=== PATIENT | male | born 1945 | race Caucasian/White ===

== ENCOUNTER 2017-11-06 17:58 | Inpatient (IN) ==
--- NOTE | 2017-11-06 18:24 | Emergency Department Note ---
Disposition Clinical Impression: Non-STEMI (non-ST elevated myocardial infarction), COPD (chronic obstructive pulmonary disease), Congestive heart failure, Anemia, Renal insufficiency, Frail elderly, Lung cancer Disposition: Admitted As Inpatient [facility] Provider[facility] - Forms: ED Satisfaction Letter General Adult HPI - General Chief complaint: ED Shortness of Breath/Dyspnea Stated complaint: SIRISHA Time Seen by Provider: 11/06/17 18:03 Source: patient, EMS Limitations: no limitations - History of Present Illness HPI Narrative: 72-year-old male reports emergency department complaining of cough and shortness of breath. He has a history of COPD and CHF as well as a cardiac pacemaker placed, he describes a history of 3 cardiac stents. The patient was at the [place], there was concern because he had a slightly elevated troponin, so the patient was transferred to the ED for evaluation. The patient reports he has a history of lung cancer and is pending radiation therapy. He describes intermittent hemoptysis from his lung masses. He has not had marked hemoptysis , occasionally small amounts,. No active hemoptysis reported. He has had no chest pain. He does not usually require oxygen at home. The patient has no history of DVT or PE, he states he has had some leg swelling which is chronic and does not get more short of breath when laying flat. The patient lives alone at home. He denies any chest pain there is no history of syncope abdominal pain vomiting or diarrhea. No difficulty moving the arms or legs independently. The patient states that he has had increasing shortness of breath and has dyspnea on exertion. There is no history of fever or sore throat. The patient denies anticoagulant therapy. There is no history of rectal bleeding. No headache or confusion. No problems moving the arms or legs independently. No facial drooping or confusion. Pain Scale: 0 - Related Data Home Medications Medication Instructions Recorded Confirmed Albuterol Sulfate [Albuterol 2 puff IH Q6HR PRN 09/28/15 08/21/17 Inhaler] Amiodarone [Cordarone] 200 mg PO QAM 09/28/15 08/21/17 Ascorbic Acid [Vitamin C] 500 mg PO DAILY 09/28/15 08/21/17 Aspirin Enteric Coated [Aspirin EC] 81 mg PO DAILY 09/28/15 08/21/17 Cholecalciferol (Vitamin D3) 800 unit PO DAILY 09/28/15 08/21/17 [Vitamin D3] Cyanocobalamin (B-12) 1,000 mcg PO BID 09/28/15 08/21/17 Furosemide [Lasix] 20 mg PO DAILY 09/28/15 08/21/17 GlipiZIDE [Glucotrol] 20 mg PO BID 09/28/15 08/21/17 Mometasone Furoate [Asmanex] 2 puff IH BID 09/28/15 08/21/17 Nitroglycerin [Nitrostat] 0.4 mg SL AD PRN 09/28/15 08/21/17 Tiotropium [Spiriva] 18 mcg IH DAILY 09/28/15 08/21/17 Acetaminophen [Tylenol] 650 mg PO Q6HR PRN 08/01/17 08/21/17 Cyclobenzaprine [Flexeril] 10 mg PO BID PRN 08/01/17 08/21/17 Docusate Sodium [Dok] 100 mg PO BID PRN 08/01/17 08/21/17 Levothyroxine [Synthroid] 125 mcg PO 0630 08/01/17 08/21/17 Simvastatin [Zocor] 40 mg PO HS 08/01/17 08/21/17 Tamsulosin [Flomax] 0.4 mg PO DAILY 08/01/17 08/21/17 Tramadol HCl [Ultram] 50 mg PO Q6H PRN 08/01/17 08/21/17 guaiFENesin [Child Mucinex Chest 10 ml PO Q4H PRN 08/01/17 08/21/17 Congestion] Bisacodyl [Dulcolax] 10 mg RC HS PRN 08/21/17 08/21/17 Calcitriol [Rocaltrol] 0.25 mcg PO QMWF 08/21/17 08/21/17 Mineral Oil/Petrolatum,White 1 appl BOTH EYES HS 08/21/17 08/21/17 [Lubricant Eye Ointment] Polyethylene Glycol 3350 17 gm PO BID 08/21/17 08/21/17 Allergies Allergy/AdvReac Type Severity Reaction Status Date / Time PLASTIC TAPE AdvReac Redness of Uncoded 08/21/17 11:26 Skin All systems ED: reviewed and negative except as stated. Past Medical History - Past Medical History Medical history: Reports: atrial fibrillation, cancer, CHF, COPD, diabetes, GERD , hyperlipidemia, hypertension, peripheral artery disease, renal disease, thyroid disease Surgical history: Reports: pacemaker/AICD Psychiatric history: Reports: no psych history - Social History Smoking Status: Former smoker Smokeless Tobacco Status: No Alcohol use: Reports: none Drug use: Reports: none Physical Exam - General Limitations: no limitations General appearance: alert, in no apparent distress - Head Head exam: atraumatic, normocephalic, normal inspection - Eye Eye exam: Present: normal appearance, PERRL, EOMI. Absent: scleral icterus, conjunctival injection, mydriasis, periorbital swelling - ENT ENT exam: normal exam, normal oropharynx, mucous membranes moist - Neck Neck exam: Present: normal inspection, full ROM, trachea midline - Chest Chest inspection: Present: symmetric chest wall rise. Absent: tenderness - Respiratory Respiratory exam: Present: prolonged expiratory phase. Absent: respiratory distress, wheezes, accessory muscle use - Cardiovascular Cardiovascular exam: Present: regular rate, normal rhythm, normal heart sounds - Abdominal Exam Abdominal exam: Present: soft, Non-Tender, normal bowel sounds. Absent: tenderness, distention, guarding, rebound, rigidity, Toney's sign, Rovsing's sign, tenderness at McBurney's Point - Extremities Exam Extremities exam: Present: normal inspection, full ROM, normal capillary refill. Absent: tenderness, pedal edema, joint swelling, calf tenderness - Expanded Lower Extremity Exam Neurovascular/Tendon exam: Present: normal capillary refill. Absent: motor deficit, sensory deficit, tendon deficit, extremity cold to touch, pallor - Back Exam Back exam: Present: normal inspection, full ROM. Absent: tenderness, CVA tenderness (R), CVA tenderness (L), vertebral tenderness - Neurological Exam Neurological exam: Present: alert, oriented X3, CN II-XII intact. Absent: motor sensory deficit - Psychiatric Psychiatric exam: Present: normal affect, normal mood - Skin Skin exam: Present: warm, dry, intact, normal color. Absent: rash, cyanosis, diaphoresis, erythema, pallor, mottled Course Vital Signs Temperature 98.5 F 11/06/17 18:02 Pulse Rate 114 11/06/17 18:02 Respiratory Rate 28 11/06/17 18:02 Blood Pressure 123/71 11/06/17 18:02 O2 Sat by Pulse Oximetry 93 11/06/17 18:02 Temperature 98.5 F 11/06/17 18:02 Pulse Rate 77 11/06/17 19:07 Respiratory Rate 28 11/06/17 19:07 Blood Pressure 109/69 11/06/17 19:07 O2 Sat by Pulse Oximetry 92 11/06/17 19:07 Oxygen Delivery Oxygen Delivery Nasal Cannula Medical Decision Making - MDM Narrative Medical decision making narrative: The [facility]27 [facility]. The patient described no chest pain. EKG did not show ST elevations. Chest x-ray shows what appear to be masses. No overt pneumonia reported. The patient was maintained on oxygen emergency department. I reviewed the case with the hospitalist on-call who was recommended aspirin and heparin and a cardiology consult. I spoke with the cook chili on-call Dr. Meza who concurs with the plan and at primary medical admission with secondary cardiology consult. The patient is agreeable to admission. Aspirin and heparin were ordered. He is currently stable with no evidence of hemoptysis. He is elderly with a history of COPD CHF lung cancer and multiple coronary stents, his troponin is significantly elevated and likely presents a non-STEMI. I do not believe the patient has a DVT or PE based on clinical examination however this is in the differential. A stable chest pain-free pending admission. - Lab Data Lab results reviewed: Yes I reviewed the patient's lab results. Result diagrams: 11/06/17 18:17 11/06/17 18:17 Lab Results 11/06/17 11/06/17 11/06/17 Range/Units 18:17 18:17 18:17 WBC 8.7 (4.3-11.1) K/mcL RBC 3.78 L (4.19-5.50) M/mcL Hgb 10.7 L (12.9-16.9) g/dL Hct 35.6 L (37.5-50.1) % MCV 94.2 (83.0-100.0) fL MCH 28.3 (28.0-33.3) pg MCHC 30.1 L (31.6-35.5) g/dL RDW 18.8 H (11.5-14.5) % Plt Count 188 (140-400) K/mcL MPV 8.9 L (9.4-12.4) fL Immature Gran % 0.5 (0-4) % Seg Neutrophils % 67.9 % Lymphocytes % 23.2 % Monocytes % 7.8 % Eosinophils % 0.3 % Basophils % 0.3 % Neutrophils # 5.9 (1.6-8.9) K/mcL Lymphocytes # 2.0 (0.6-4.6) K/mcL Monocytes # 0.7 (0.0-1.3) K/mcL Eosinophils # 0.0 (0.0-0.6) K/mcL Basophils # 0.0 (0.0-0.2) K/mcL PT 13.9 H (9.4-12.1) Seconds INR 1.3 APTT 29.5 (26.0-36.0) Seconds Sodium 140 (136-145) mEq/L Potassium 4.2 (3.5-4.5) mEq/L Chloride 104 (98-109) mEq/L Carbon Dioxide 28 (19-29) mEq/L BUN 25 (8-26) mg/dL Creatinine 1.67 H (0.72-1.25) mg/dL Est GFR ( Amer) 49 L (> 60) Est GFR (Non-Af Amer) 40 L (> 60) BUN/Creatinine Ratio 15 (6-26) Glucose 155 H (70-99) mg/dL Calculated Osmolality 298 (280-300) Lactic Acid (0.5-2.2) mmol/L Calcium 8.1 L (8.6-10.8) mg/dL Total Bilirubin 0.9 (0.2-1.2) mg/dL Direct Bilirubin 0.5 (0.0-0.5) mg/dL Indirect Bilirubin 0.4 (0.0-1.2) mg/dL AST 8 (5-34) Units/L ALT 8 (0-55) Units/L Alkaline Phosphatase 69 (38-126) Units/L Troponin I (0-0.03) ng/mL C-Reactive Protein (Less than 5) mg/L B-Natriuretic Peptide (0-100) pg/mL Serum Total Protein 6.2 (6.0-8.3) g/dL Albumin 2.5 L (3.5-5.0) g/dL Globulin 3.7 H (2.4-3.5) g/dL Albumin/Globulin Ratio 0.7 L (1.1-2.2) 11/06/17 11/06/17 11/06/17 Range/Units 18:17 18:17 18:17 WBC (4.3-11.1) K/mcL RBC (4.19-5.50) M/mcL Hgb (12.9-16.9) g/dL Hct (37.5-50.1) % MCV (83.0-100.0) fL MCH (28.0-33.3) pg MCHC (31.6-35.5) g/dL RDW (11.5-14.5) % Plt Count (140-400) K/mcL MPV (9.4-12.4) fL Immature Gran % (0-4) % Seg Neutrophils % % Lymphocytes % % Monocytes % % Eosinophils % % Basophils % % Neutrophils # (1.6-8.9) K/mcL Lymphocytes # (0.6-4.6) K/mcL Monocytes # (0.0-1.3) K/mcL Eosinophils # (0.0-0.6) K/mcL Basophils # (0.0-0.2) K/mcL PT (9.4-12.1) Seconds INR APTT (26.0-36.0) Seconds Sodium (136-145) mEq/L Potassium (3.5-4.5) mEq/L Chloride (98-109) mEq/L Carbon Dioxide (19-29) mEq/L BUN (8-26) mg/dL Creatinine (0.72-1.25) mg/dL Est GFR ( Amer) (> 60) Est GFR (Non-Af Amer) (> 60) BUN/Creatinine Ratio (6-26) Glucose (70-99) mg/dL Calculated Osmolality (280-300) Lactic Acid 1.7 (0.5-2.2) mmol/L Calcium (8.6-10.8) mg/dL Total Bilirubin (0.2-1.2) mg/dL Direct Bilirubin (0.0-0.5) mg/dL Indirect Bilirubin (0.0-1.2) mg/dL AST (5-34) Units/L ALT (0-55) Units/L Alkaline Phosphatase (38-126) Units/L Troponin I 0.27 H* (0-0.03) ng/mL C-Reactive Protein (Less than 5) mg/L B-Natriuretic Peptide 780 H (0-100) pg/mL Serum Total Protein (6.0-8.3) g/dL Albumin (3.5-5.0) g/dL Globulin (2.4-3.5) g/dL Albumin/Globulin Ratio (1.1-2.2) 12//17 Range/Units 18:17 WBC (4.3-11.1) K/mcL RBC (4.19-5.50) M/mcL Hgb (12.9-16.9) g/dL Hct (37.5-50.1) % MCV (83.0-100.0) fL MCH (28.0-33.3) pg MCHC (31.6-35.5) g/dL RDW (11.5-14.5) % Plt Count (140-400) K/mcL MPV (9.4-12.4) fL Immature Gran % (0-4) % Seg Neutrophils % % Lymphocytes % % Monocytes % % Eosinophils % % Basophils % % Neutrophils # (1.6-8.9) K/mcL Lymphocytes # (0.6-4.6) K/mcL Monocytes # (0.0-1.3) K/mcL Eosinophils # (0.0-0.6) K/mcL Basophils # (0.0-0.2) K/mcL PT (9.4-12.1) Seconds INR APTT (26.0-36.0) Seconds Sodium (136-145) mEq/L Potassium (3.5-4.5) mEq/L Chloride (98-109) mEq/L Carbon Dioxide (19-29) mEq/L BUN (8-26) mg/dL Creatinine (0.72-1.25) mg/dL Est GFR ( Amer) (> 60) Est GFR (Non-Af Amer) (> 60) BUN/Creatinine Ratio (6-26) Glucose (70-99) mg/dL Calculated Osmolality (280-300) Lactic Acid (0.5-2.2) mmol/L Calcium (8.6-10.8) mg/dL Total Bilirubin (0.2-1.2) mg/dL Direct Bilirubin (0.0-0.5) mg/dL Indirect Bilirubin (0.0-1.2) mg/dL AST (5-34) Units/L ALT (0-55) Units/L Alkaline Phosphatase (38-126) Units/L Troponin I (0-0.03) ng/mL C-Reactive Protein 94 H (Less than 5) mg/L B-Natriuretic Peptide (0-100) pg/mL Serum Total Protein (6.0-8.3) g/dL Albumin (3.5-5.0) g/dL Globulin (2.4-3.5) g/dL Albumin/Globulin Ratio (1.1-2.2) - Radiology Data Radiology results reviewed: Yes I reviewed the patient's radiology results. Critical Care Time Critical Care Time: Yes Total Critical Care Time: 33 Attestation: 10 minutes initial evaluation 10 minutes documenting the medical record and interpreting clinical data 5 minutes reevaluation 8 minutes discussing with the hospitalist, cook chili, and arranging for admission.
[2017-11-06 18:39] LABS: Basophils % 0.3 %; Eosinophils % 0.3 %; Hematocrit 35.6 % (37.5-50.1); Hemoglobin 10.7 g/dL (12.9-16.9); Immature Granulocytes % 0.5 % (0-4); Lymphocytes % 23.2 %; Mean Corpuscular HGB Conc 30.1 g/dL (31.6-35.5); Mean Corpuscular Hemoglobin 28.3 pg (28.0-33.3); Mean Corpuscular Volume 94.2 fL (83.0-100.0); Mean Platelet Volume 8.9 fL (9.4-12.4); Monocytes # 0.7 K/mcL (0.0-1.3); Monocytes % 7.8 %; Neutrophils # 5.9 K/mcL (1.6-8.9); Platelet Count 188 K/mcL (140-400); Red Blood Count 3.78 M/mcL (4.19-5.50); Red Cell Distribution Width 18.8 % (11.5-14.5); Segmented Neutrophils % 67.9 %
[2017-11-06 18:45] LABS: INR 1.3; Prothrombin Time 13.9 Seconds (9.4-12.1)
[2017-11-06 18:48] LABS: Activated Partial Thrombo Time 29.5 Seconds (26.0-36.0)
[2017-11-06 18:57] LABS: Albumin 2.5 g/dL (3.5-5.0); Bilirubin,Direct 0.5 mg/dL (0.0-0.5); Bilirubin,Indirect 0.4 mg/dL (0.0-1.2); Bilirubin,Total 0.9 mg/dL (0.2-1.2); Calcium 8.1 mg/dL (8.6-10.8); Potassium 4.2 mEq/L (3.5-4.5); Total Protein 6.2 g/dL (6.0-8.3)
[2017-11-06 18:58] LABS: Albumin/Globulin Ratio 0.7 (1.1-2.2); Globulin 3.7 g/dL (2.4-3.5)
[2017-11-06] MEDS ORDERED: Aspirin 325 MG TABLET PO ONE (19:44)
[2017-11-06] MEDS ORDERED: *HR* Heparin 5,000 UNIT/ML VIAL IVP PRN (20:04)
[2017-11-06] MEDS ORDERED: *HR* Heparin 5,000 UNIT/ML VIAL IVP ONE (20:04)
[2017-11-06] MEDS: Heparin 25,000 UNIT/500 ML D5W 25,000 UNIT/500 ML BAG IVC SCH (20:22)
[2017-11-06] MEDS ORDERED: Sennosides/Docusate Sodium TABLET PO PRN (20:41)
[2017-11-06] MEDS ORDERED: Nitroglycerin 0.4 MG TAB.SUBL SL PRN (20:41)
[2017-11-06] MEDS ORDERED: Furosemide 40 MG/4 ML VIAL IVP ONE (20:43)
[2017-11-06] MEDS ORDERED: *HR* Morphine 2 MG/ML SYRINGE IVP PRN (20:45)
[2017-11-06] MEDS ORDERED: Naloxone 0.4 MG/ML INJ IVP PRN (20:45)
[2017-11-06] MEDS ORDERED: Ipratropium/Albuterol Neb 3 ML IH PRN (20:45)
--- NOTE | 2017-11-06 20:50 | Internal Med History&Physical ---
Date of Encounter: 11/06/17 Time of Encounter: 20:49 Assessment and Plan (1) Non-STEMI (non-ST elevated myocardial infarction) Current visit: Yes Status: Acute likely demand from cardio-pulm issues d/w ED who d/w card, heparin gtt for now trend trop (2) Acute bronchitis Current visit: Yes Status: Acute duonebs trial, azithro trial Qualifiers: Bronchitis organism: other organism Qualified Code(s): J20.8 - Acute bronchitis due to other specified organisms (3) Congestive heart failure Current visit: Yes Status: Acute trial of lasix BID for now, I&Os Qualifiers: Congestive heart failure type: combined Congestive heart failure chronicity : acute Qualified Code(s): I50.41 - Acute combined systolic (congestive) and diastolic (congestive) heart failure (4) Lung cancer Current visit: Yes Status: Acute streak hemoptysis to monitor closely pending what appears to be definitive XRT start Qualifiers: Qualified Code(s): C34.00 - Malignant neoplasm of unspecified main bronchus (5) Renal insufficiency Current visit: Yes Status: Acute trend with lasix Internal Medicine - H&P: HPI Chief complaint: SOB History of present illness: Mr. Kim is a 72 year old male who presents from the [facility] for acute on subacute SOB. He has a hx of CAD s/p 3 stents many years ago and also has a cardiac device placement 2011. [facility] of breathing. He could not walk 8-9 steps without feeling SOB. He reports a background of subacute SOB for the last few months but was notably worse today. He uses 2 L prn. Denies CP or CP equivalent. He quit smoking 1994 He was recently dx with lung ca and reported streak hemoptysis prn. He is pending what appears to be definitive XRT -Oct EKG personally reviewed with rate 86, NSR, T-ST flattening XR/XR chest 2V IMPRESSION: 1. Stable pulmonary venous/artery hypertension. 2. Interval resolution of effusions with stable patchy pulmonary opacities which may represent component of interstitial edema. No lobar pneumonia. Past Med Surg Social Fam HX - Past Medical History Medical history: atrial fibrillation, cancer, CHF, COPD, diabetes, GERD, hyperlipidemia, hypertension, peripheral artery disease, renal disease, thyroid disease Psychiatric history: no psych history - Past Surgical History Surgical History: pacemaker/AICD - Social History Smoking Status: Former smoker Smokeless Tobacco Status: No Alcohol use: none Drug use: none - Additional Family History Additional family history: HTN Internal Medicine - H&P: Meds Albuterol Sulfate [Albuterol Inhaler] 2 puff IH Q6HR PRN 09/28/15 [History] Amiodarone [Cordarone] 200 mg PO DAILY 09/28/15 [History] Ascorbic Acid [Vitamin C] 500 mg PO DAILY 09/28/15 [History] Aspirin Enteric Coated [Aspirin EC] 81 mg PO DAILY 09/28/15 [History] Cyanocobalamin (B-12) 1,000 mcg PO BID 09/28/15 [History] Mometasone Furoate [Asmanex] 2 puff IH BID 09/28/15 [History] Nitroglycerin [Nitrostat] 0.4 mg SL Q5M PRN 09/28/15 [History] Tiotropium [Spiriva] 18 mcg IH DAILY 09/28/15 [History] Acetaminophen [Tylenol] 650 mg PO TID PRN 08/01/17 [History] Cyclobenzaprine [Flexeril] 10 mg PO BID PRN 08/01/17 [History] Docusate Sodium [Dok] 100 mg PO BID 08/01/17 [History] Levothyroxine [Synthroid] 125 mcg PO 0630 08/01/17 [History] Tamsulosin [Flomax] 0.4 mg PO QPM 08/01/17 [History] Tramadol HCl [Ultram] 50 mg PO TID PRN 08/01/17 [History] Calcitriol [Rocaltrol] 0.25 mcg PO MOWEFR 08/21/17 [History] Mineral Oil/Petrolatum,White [Lubricant Eye Ointment] 1 appl BOTH EYES HS [History] Albuterol Neb [Proventil Neb] 2.5 mg IH Q4H PRN 11/06/17 [History] Cholecalciferol (D-3) [Vitamin D] 2,000 unit PO DAILY 11/06/17 [History] Furosemide [Lasix] 30 mg PO DAILY 11/06/17 [History] GuaiFENesin/Dextromethorphan [Tussin Dm Syrup] 5 ml PO Q6H PRN 11/06/17 [History ] Insulin ASPART [NovoLOG] 6 unit SQ DAILY 11/06/17 [History] Insulin Glargine,Hum.rec.anlog [Basaglar Kwikpen U-100] 10 unit SQ QAM 11/06/17 [History] Insulin Glargine,Hum.rec.anlog [Basaglar Kwikpen U-100] 15 unit SQ HS 11/06/17 [ History] Mometasone/Formoterol [Dulera 200 Mcg/5 Mcg Inhaler] 2 puff IH BID 11/06/17 [ History] Saline Nasal [place] [[place] Nasal [place]] 2 spray NS 5XD PRN 11/06/17 [History] Sennosides/Docusate Sodium [Senna Plus] 1 each PO BID PRN 11/06/17 [History] Simvastatin [Zocor] 20 mg PO HS 11/06/17 [History] predniSONE [PredniSONE] 10 mg PO DAILY 11/06/17 [History] 3 Allergy/AdvReac Type Severity Reaction Status Date / Time acarbose AdvReac See Verified 11/06/17 20:26 Comments PLASTIC TAPE AdvReac Redness of Uncoded 08/21/17 11:26 Skin All Systems PM: A 10-system review of systems was performed and is negative for pertinent findings except as documented above in the HPI. Review of systems: ROS 14 point review of systems reviewed as best as possible given presentation. Pertinent positive or negative as per HPI or otherwise reviewed as negative - Constitutional Vitals: Temp Pulse Resp BP Pulse Ox 98.5 F 72 24 114/67 91 11/06/17 18:02 11/06/17 20:07 11/06/17 20:07 11/06/17 20:07 11/06/17 20:07 Exam: General - AAO x 3 Psych - Appropriate affect/speech. No agitation Eyes - JIMMY. Eye lids intact. No scleral icterus Heart - Sinus. RRR. S1 and S2 present. No added HS/murmurs appreciated. No elevated JVD appreciated. Lung - Adequate air entry b/l, Bibasal crackles. No wheezes appreciated GI - Soft, non-tender. No hepatosplenomegaly/ascites. BS+ - No CVA/suprapubic tenderness or palpable bladder distension Skin - Intact. No rash/petechiae/ecchymosis. Warm extremities. B/l LE edema Internal Med - H&P Results - Labs CBC & Chem 7: 11/06/17 18:17 11/06/17 18:17
[2017-11-06] MEDS ORDERED: NON-FORMULARY MEDICATION 1 EACH EACH (Mometasone/Formoterol [Dulera 200 Mcg/5 Mcg Inhaler] IH SCH (21:00)
[2017-11-06] MEDS ORDERED: *HR* Dextrose 50 % in Water (Syg) 50 ML SYRINGE IVP PRN (21:08)
[2017-11-06] MEDS ORDERED: Dextrose Gel 15 GM PO PRN ×2 (21:08)
[2017-11-06] MEDS ORDERED: D5% in Water 1,000 ML IVC PRN (21:08)
[2017-11-06] MEDS: Ipratropium/Albuterol Neb 3 ML IH SCH (22:26)
[2017-11-06] MEDS: Budesonide/Formoterol 160/4.5 MDI IH SCH (22:26)
[2017-11-06] MEDS: traMADol 50 MG TABLET PO PRN (22:39)
[2017-11-06] MEDS: Cyanocobalamin (B-12) 1,000 MCG TABLET PO SCH (22:39)
[2017-11-06] MEDS: Insulin DETEMIR 100 UNIT/ML X5UNITS SQ SCH (22:40)
[2017-11-07 04:19] LABS: Basophils % 0.4 %; Eosinophils # 0.1 K/mcL (0.0-0.6); Eosinophils % 1.3 %; Hematocrit 32.4 % (37.5-50.1); Hemoglobin 10.1 g/dL (12.9-16.9); Immature Granulocytes % 0.2 % (0-4); Lymphocytes # 1.8 K/mcL (0.6-4.6); Lymphocytes % 33.3 %; Mean Corpuscular HGB Conc 31.2 g/dL (31.6-35.5); Mean Corpuscular Hemoglobin 29.3 pg (28.0-33.3); Mean Corpuscular Volume 93.9 fL (83.0-100.0); Mean Platelet Volume 8.7 fL (9.4-12.4); Monocytes # 0.5 K/mcL (0.0-1.3); Monocytes % 8.7 %; Neutrophils # 3.1 K/mcL (1.6-8.9); Platelet Count 159 K/mcL (140-400); Red Blood Count 3.45 M/mcL (4.19-5.50); Red Cell Distribution Width 18.9 % (11.5-14.5); Segmented Neutrophils % 56.1 %
[2017-11-07 04:28] LABS: Calcium 8.2 mg/dL (8.6-10.8); Potassium 4.3 mEq/L (3.5-4.5)
[2017-11-07] MEDS: Ipratropium/Albuterol Neb 3 ML IH SCH ×4 (04:46→22:09)
[2017-11-07] MEDS: *HR* Heparin 5,000 UNIT/ML VIAL IVP PRN ×2 (07:52→14:53)
[2017-11-07] MEDS: Ascorbic Acid 500 MG TABLET PO SCH (08:22)
[2017-11-07] MEDS: Cyanocobalamin (B-12) 1,000 MCG TABLET PO SCH ×2 (08:22→20:16)
[2017-11-07] MEDS: Cholecalciferol (D-3) 1,000 UNIT TABLET PO SCH (08:22)
[2017-11-07] MEDS: *HR* Amiodarone 200 MG TABLET PO SCH (08:22)
[2017-11-07] MEDS: Insulin LISPRO 300 UNITS/3 ML VIAL SQ SCH ×3 (08:25→16:24)
[2017-11-07] MEDS: Insulin DETEMIR 100 UNIT/ML X5UNITS SQ SCH ×2 (08:26→20:16)
[2017-11-07] MEDS ORDERED: Tiotropium 18 MCG inhalation IH SCH (09:00)
--- NOTE | 2017-11-07 09:54 | Cardiology Consult Note ---
<Damián Finn - Last Filed: 11/07/17 09:57> Date of Encounter: 11/07/17 Time of Encounter: 08:45 Assessment and Plan (1) Elevated troponin Current Visit: Yes Status: Acute Mild troponin up to 0.33. Possible demand ischemia in the setting of acute on chronic CHF. EKG with no acute changes compared to previous. SR with previous inferior SD. Check TTE. Patient denies chest pain. C/o dyspnea, anginal equivalent? Denies symptoms he experienced prior to previous PCI. Agree with heparin gtt. Asa, statin, and bb. Further recs pending TTE. (2) Congestive heart failure Current Visit: Yes Status: Acute Acute on chronic CHF. Reports history of CHF and ICD. Patient unclear when last cardiac work-up completed. Previously seen at [facility]. Check TTE. BNP 1300's at [facility]. CXR findings represent possible interstitial edema. Net negative 1097. BNP 780 here. Continues to have fluid overload on exam. I will repeat IV lasix. Given 40 mg x1 yesterday. Monitor strict I&O and daily weights. Qualifiers: Congestive heart failure type: combined Congestive heart failure chronicity : acute Qualified Code(s): I50.41 - Acute combined systolic (congestive) and diastolic (congestive) heart failure (3) CAD (coronary artery disease) Current Visit: Yes Status: Acute Continue asa, statin, and bb. Qualifiers: Coronary Disease-Associated Artery/Lesion type: [place] artery [place] vs. transplanted heart: [place] heart Associated angina: without angina Qualified Code(s): I25.10 - Atherosclerotic heart disease of [place] coronary artery without angina pectoris (4) Atrial fibrillation Current Visit: Yes Status: Acute Reports h/o atrial fibrillation. He was previously ion coumadin. This was discontinued due to GI bleed. Currently NSR. Continue asa. Qualifiers: Atrial fibrillation type: paroxysmal Qualified Code(s): I48.0 - Paroxysmal atrial fibrillation Discussion w patient/family: The assessment and plan as outlined above was discussed with the patient and/or family members who expressed understanding and agreement. All questions were answered. Thank you for involving us in the care of your patient. Please call with any questions. History of Present Illness Consult date: 11/07/17 Requesting physician: Brad Ratliff Consult reason: Elevated troponin, CHF Chief complaint: Increasing dyspnea on exertion and BLE edema. History of present illness: Mr. Kim is a 72 year old male with a history of CAD s/p remote PCI, CHF, ICD placement several years ago, atrial fibrillation, GI bleed 8 years ago, COPD on home O2, recently diagnosed lung cancer, and CKD. [facility] with increasing dyspnea on exertion over the past week. He reports decline in activity due to SOB. Admits to BLE edema and orthopnea. He was found to have BNP elevated in the 1300's and troponin at 0.19. He was transferred to [facility] for evaluation. Troponin peaked at 0.33. EKG showed SR with old inferior SD. No acute ST changes. He denies chest pain or palpitations. He is planning to start radiation for lung cancer with [facility] next week. Past Med Surg Social Fam HX - Past Medical History Attestation: Yes The following information was validated with the patient. Medical history: atrial fibrillation, cancer, CHF, COPD, diabetes, GERD, hyperlipidemia, hypertension, peripheral artery disease, renal disease, thyroid disease Psychiatric history: no psych history - Past Surgical History Surgical History: pacemaker/AICD - Social History Smoking Status: Former smoker Smokeless Tobacco Status: No Alcohol use: none Drug use: none Medications and Allergies Albuterol Sulfate [Albuterol Inhaler] 2 puff IH Q6HR PRN 09/28/15 [History] Amiodarone [Cordarone] 200 mg PO DAILY 09/28/15 [History] Ascorbic Acid [Vitamin C] 500 mg PO DAILY 09/28/15 [History] Aspirin Enteric Coated [Aspirin EC] 81 mg PO DAILY 09/28/15 [History] Cyanocobalamin (B-12) 1,000 mcg PO BID 09/28/15 [History] Mometasone Furoate [Asmanex] 2 puff IH BID 09/28/15 [History] Nitroglycerin [Nitrostat] 0.4 mg SL Q5M PRN 09/28/15 [History] Tiotropium [Spiriva] 18 mcg IH DAILY 09/28/15 [History] Acetaminophen [Tylenol] 650 mg PO TID PRN 08/01/17 [History] Cyclobenzaprine [Flexeril] 10 mg PO BID PRN 08/01/17 [History] Docusate Sodium [Dok] 100 mg PO BID 08/01/17 [History] Levothyroxine [Synthroid] 125 mcg PO 0630 08/01/17 [History] Tamsulosin [Flomax] 0.4 mg PO QPM 08/01/17 [History] Tramadol HCl [Ultram] 50 mg PO TID PRN 08/01/17 [History] Calcitriol [Rocaltrol] 0.25 mcg PO MOWEFR 08/21/17 [History] Mineral Oil/Petrolatum,White [Lubricant Eye Ointment] 1 appl BOTH EYES HS [History] Albuterol Neb [Proventil Neb] 2.5 mg IH Q4H PRN 11/06/17 [History] Cholecalciferol (D-3) [Vitamin D] 2,000 unit PO DAILY 11/06/17 [History] Furosemide [Lasix] 30 mg PO DAILY 11/06/17 [History] GuaiFENesin/Dextromethorphan [Tussin Dm Syrup] 5 ml PO Q6H PRN 11/06/17 [History ] Insulin ASPART [NovoLOG] 6 unit SQ DAILY 11/06/17 [History] Insulin Glargine,Hum.rec.anlog [Basaglar Kwikpen U-100] 10 unit SQ QAM 11/06/17 [History] Insulin Glargine,Hum.rec.anlog [Basaglar Kwikpen U-100] 15 unit SQ HS 11/06/17 [ History] Mometasone/Formoterol [Dulera 200 Mcg/5 Mcg Inhaler] 2 puff IH BID 11/06/17 [ History] Saline Nasal [place] [[place] Nasal [place]] 2 spray NS 5XD PRN 11/06/17 [History] Sennosides/Docusate Sodium [Senna Plus] 1 each PO BID PRN 11/06/17 [History] Simvastatin [Zocor] 20 mg PO HS 11/06/17 [History] predniSONE [PredniSONE] 10 mg PO DAILY 11/06/17 [History] 3 Allergy/AdvReac Type Severity Reaction Status Date / Time acarbose AdvReac See Verified 11/06/17 20:26 Comments PLASTIC TAPE AdvReac Redness of Uncoded 08/21/17 11:26 Skin All Systems Review: A 10-system review of systems was performed and is negative for pertinent findings except as documented above in the HPI. Physical Examination Vital Signs, Last 4 Hours Temp Pulse Resp BP Pulse Ox 11/07/17 07:36 98.2 F 70 16 109/64 91 General: Conversant, No Apparent Distress HEENT: Atraumatic, Normocephaly, Mucus Membranes Moist Neck: No JVD, Normal carotid pulses Cardiac: Reg Rate and Rhythm, Normal S1 and S2, No Murmur Lungs: Normal Breath Sounds, No Wheeze, Rales, Rhonchi Neuro: Alert and responsive, No focal deficits noted Abdomen: Soft, Non-Tender Skin: No rashes noted on visualized skin, Other (noted on back.) Musculoskeletal: No Chest Wall Tenderness Extremities: No Clubbing, No Cyanosis, No Edema, Normal Pulses Results 11/07/17 03:50 11/07/17 03:50 Lab Results 11/06/17 11/07/17 11/07/17 21:22 00:18 03:50 WBC Hgb Hct Plt Count APTT 64.5 H D Sodium Potassium Chloride Carbon Dioxide BUN Creatinine Glucose Calcium Magnesium Troponin I 0.33 H* 0.29 H* 11/07/17 11/07/17 11/07/17 03:50 03:50 06:44 WBC 5.4 Hgb 10.1 L Hct 32.4 L Plt Count 159 APTT 43.7 H Sodium 140 Potassium 4.3 Chloride 103 Carbon Dioxide 28 BUN 24 Creatinine 1.68 H Glucose 116 H Calcium 8.2 L Magnesium 2.0 Troponin I 11/07/17 08:43 WBC Hgb Hct Plt Count APTT Sodium Potassium Chloride Carbon Dioxide BUN Creatinine Glucose Calcium Magnesium Troponin I 0.23 H* - Imaging and Cardiology Echo: report reviewed - EKG Interpretation EKG results cardiology: personally reviewed Consult Discharge Plan - Plan Referrals: [facility],PCP [Primary Care Provider] - <Sima Meza - Last Filed: 11/07/17 16:51> Date of Encounter: 11/07/17 - Attending Attestation I have personally performed a face to face evaluation on this patient. I have reviewed and agree with the care plan with MARKETING LIAISON: Mr. Kim is a very pleasant 72 year old male presenting from the [facility] for troponin elevation. He presented there after having 1 week of worsening SOB and LE edema. He was found to have BNP 1300 and troponin 0.19. Troponin peaked at 0.33 - in the setting of CKD. No new ischemic ECG findings. He denies chest pain. He reports a history of CAD having had PCI several years ago. He also had a pacemaker-defibrillator placed in 2012 per his report. He is not sure what his EF is. He does report having an echo at the [facility] a few months ago. In light of the troponin elevation and CHF symptoms, recommend performing an echo for review of structure and function. We will attempt to obtain the recent echo performed for comparison. We briefly discussed consideration for [facility]. We will await echo findings and trend troponin before further discussion. Continue heparin at this time, statin, asa, BB, diuresis. Assessment and Plan Discussion w patient/family: The assessment and plan as outlined above was discussed with the patient and/or family members who expressed understanding and agreement. All questions were answered. Thank you for involving us in the care of your patient. Please call with any questions. History of Present Illness History of present illness: Mr. Kim is a 72 year old male All Systems Review: A 10-system review of systems was performed and is negative for pertinent findings except as documented above in the HPI. Physical Examination Vital Signs, Last 4 Hours Temp Pulse Resp BP Pulse Ox 11/07/17 15:50 16 94 11/07/17 15:04 98 F 85 16 111/64 94 Results 11/07/17 03:50 11/07/17 03:50 Lab Results 11/06/17 11/07/17 11/07/17 21:22 00:18 03:50 WBC Hgb Hct Plt Count APTT 64.5 H D Sodium Potassium Chloride Carbon Dioxide BUN Creatinine Glucose Calcium Magnesium Troponin I 0.33 H* 0.29 H* 11/07/17 11/07/17 11/07/17 03:50 03:50 06:44 WBC 5.4 Hgb 10.1 L Hct 32.4 L Plt Count 159 APTT 43.7 H Sodium 140 Potassium 4.3 Chloride 103 Carbon Dioxide 28 BUN 24 Creatinine 1.68 H Glucose 116 H Calcium 8.2 L Magnesium 2.0 Troponin I 11/07/17 11/07/17 08:43 13:37 WBC Hgb Hct Plt Count APTT 46.5 H Sodium Potassium Chloride Carbon Dioxide BUN Creatinine Glucose Calcium Magnesium Troponin I 0.23 H*
[2017-11-07] MEDS: Budesonide/Formoterol 160/4.5 MDI IH SCH ×2 (10:22→22:09)
[2017-11-07] MEDS: Metoprolol XL (24 HR) Succ 25 MG TAB.ER.24H PO SCH (12:02)
[2017-11-07] MEDS: Aspirin Enteric Coated 81 MG Tablet PO SCH (14:53)
--- NOTE | 2017-11-07 16:39 | Electrocardiograph Report ---
[place] [id number] Test Date: 2017-11-06 Pat Name: Robby Kim Department: 104 Room: 2NE19 Gender: M [employer]: : 1945 Requested By: Oliver Bain Order Number: [id number] Reading MD: Lion Torrez DO Measurements Intervals [place] Rate: 86 P: 8 MI: 200 QRS: 114 QRSD: 121 T: 28 QT: 420 QTc: 464 Interpretive Statements SINUS RHYTHM NONSPECIFIC ST-T CHANGES Intraventricular conduction delay POSSIBLE INFERIOR INFARCTION, AGE UNDETERMINED Electronically Signed On 11-07-2017 16:38:07 EST by Lion Torrez DO
[2017-11-07] MEDS: Heparin 25,000 UNIT/500 ML D5W 25,000 UNIT/500 ML BAG IVC SCH (18:33)
--- NOTE | 2017-11-07 18:39 | Internal Med Progress Note ---
Date of Encounter: 11/07/17 Time of Encounter: 12:00 - Assessment and plan (1) Non-STEMI (non-ST elevated myocardial infarction) Current Visit: Yes Status: Acute Assessment and plan: -Suspect demand ischemia with CHF exacerbation -Cardiology consulted with recommendations for echocardiogram. -Continue heparin drip (2) Congestive heart failure Current Visit: Yes Status: Acute Assessment and plan: -Continue IV diuresis per cardiology Qualifiers: Congestive heart failure type: combined Congestive heart failure chronicity : acute Qualified Code(s): I50.41 - Acute combined systolic (congestive) and diastolic (congestive) heart failure (3) COPD (chronic obstructive pulmonary disease) Current Visit: Yes Status: Acute Assessment and plan: -Continue duo nebs Qualifiers: Emphysema type: unspecified Qualified Code(s): J43.9 - Emphysema, unspecified (4) Anemia Current Visit: Yes Status: Acute Assessment and plan: -Stable; continue to monitor. Qualifiers: Chronic kidney disease stage: unspecified stage Qualified Code(s): N18.9 - Chronic kidney disease, unspecified; D63.1 - Anemia in chronic kidney disease; D63.1 - Anemia in chronic kidney disease - Subjective Interval history: Patient with elevated cardiac biomarkers that are now trending downward. - Constitutional Vitals: Temp Pulse Resp BP Pulse Ox 98 F 85 16 111/64 94 11/07/17 15:04 11/07/17 15:04 11/07/17 15:50 11/07/17 15:04 11/07/17 15:50 - Respiratory Respiratory exam: Present: rales (Crackles) - Cardiovascular Cardiovascular exam: Present: RRR, +S1, +S2. Absent: diastolic murmur, gallop, rubs, systolic murmur Internal Medicine: Result - Labs CBC & Chem 7: 11/07/17 03:50 11/07/17 03:50 Labs: Short CBC 11/07/17 Range/Units 03:50 WBC 5.4 (4.3-11.1) K/mcL Hgb 10.1 L (12.9-16.9) g/dL Hct 32.4 L (37.5-50.1) % Plt Count 159 (140-400) K/mcL Neutrophils # 3.1 (1.6-8.9) K/mcL BMP 11/07/17 03:50 Sodium 140 Potassium 4.3 Chloride 103 Carbon Dioxide 28 BUN 24 Creatinine 1.68 H Glucose 116 H Calcium 8.2 L Cardiac Enzymes 11/06/17 11/07/17 11/07/17 Range/Units 21:22 03:50 08:43 Troponin I 0.33 H* 0.29 H* 0.23 H* (0-0.03) ng/mL - ABG Interpretation ABG results: PT/INR, D-dimer PT 13.9 Seconds (9.4-12.1) H 11/06/17 18:17 Consult Discharge Plan - Plan [facility] Care Provider[facility] -
[2017-11-08] MEDS: Insulin LISPRO 300 UNITS/3 ML VIAL SQ SCH ×5 (01:00→19:47)
[2017-11-08] MEDS: *HR* Heparin 5,000 UNIT/ML VIAL IVP PRN (01:03)
[2017-11-08] MEDS: Ipratropium/Albuterol Neb 3 ML IH SCH ×4 (04:35→23:19)
[2017-11-08 07:41] LABS: Basophils % 0.6 %; Eosinophils % 0.6 %; Hematocrit 32.9 % (37.5-50.1); Hemoglobin 9.8 g/dL (12.9-16.9); Immature Granulocytes % 0.5 % (0-4); Lymphocytes # 1.4 K/mcL (0.6-4.6); Lymphocytes % 21.9 %; Mean Corpuscular HGB Conc 29.8 g/dL (31.6-35.5); Mean Corpuscular Hemoglobin 28.9 pg (28.0-33.3); Mean Corpuscular Volume 97.1 fL (83.0-100.0); Monocytes # 0.4 K/mcL (0.0-1.3); Monocytes % 6.9 %; Neutrophils # 4.5 K/mcL (1.6-8.9); Platelet Count 157 K/mcL (140-400); Red Blood Count 3.39 M/mcL (4.19-5.50); Red Cell Distribution Width 18.6 % (11.5-14.5); Segmented Neutrophils % 69.5 %
[2017-11-08 08:26] LABS: Calcium 7.8 mg/dL (8.6-10.3); Magnesium 2.1 mg/dL (1.6-2.6); Potassium 4.1 mEq/L (3.5-5.1)
[2017-11-08] MEDS: Cyanocobalamin (B-12) 1,000 MCG TABLET PO SCH ×2 (08:30→19:43)
[2017-11-08] MEDS: Cholecalciferol (D-3) 1,000 UNIT TABLET PO SCH (08:30)
[2017-11-08] MEDS: Aspirin Enteric Coated 81 MG Tablet PO SCH (08:30)
[2017-11-08] MEDS: Metoprolol XL (24 HR) Succ 25 MG TAB.ER.24H PO SCH (08:31)
[2017-11-08] MEDS: Ascorbic Acid 500 MG TABLET PO SCH (08:32)
[2017-11-08] MEDS: *HR* Amiodarone 200 MG TABLET PO SCH (08:32)
[2017-11-08] MEDS: Insulin DETEMIR 100 UNIT/ML X5UNITS SQ SCH ×2 (08:34→19:44)
[2017-11-08] MEDS: Budesonide/Formoterol 160/4.5 MDI IH SCH ×2 (10:05→23:19)
[2017-11-08] MEDS: Heparin 25,000 UNIT/500 ML D5W 25,000 UNIT/500 ML BAG IVC SCH (12:06)
--- NOTE | 2017-11-08 12:21 | Cardiology Progress Note ---
Date of Encounter: 11/08/17 Time of Encounter: 12:18 Assessment and Plan (1) Congestive heart failure Current Visit: Yes Status: Acute Acute on chronic CHF. Reports history of CHF and ICD. Patient unclear when last cardiac work-up completed. Previously seen at [facility]. Echo --LVEF 55-60%. Not all LV segments were well visualized, but overall LV function appears normal. Mild left ventricular diastolic dysfunction. Atypical septal motion consistent with paced rhythm. Mildly dilated right ventricle with normal appearing function. Mild tricuspid regurgitation. Moderate pulmonary hypertension. A device lead was visualized in the right atrium and right ventricle. BNP 1300's at [place], 780s here. CXR findings represent possible interstitial edema. Recommend strict I/Os, Na and fluid restriction, daily weights. Renal function has improved. Start PO Lasix 40mg daily for maintenance dosing. Cardiology signing off. Reconsult PRN. Qualifiers: Congestive heart failure type: diastolic Congestive heart failure chronicity: acute Qualified Code(s): I50.31 - Acute diastolic (congestive) heart failure (2) Elevated troponin Current Visit: Yes Status: Acute Mild troponin up to 0.33, now downtrending--suspect demand ischemia in the setting of acute on chronic CHF. EKG with no acute changes compared to previous. SR with previous inferior AL. Echo resulted--LVEF 55-60%. Not all LV segments were well visualized, but overall LV function appears normal. Mild left ventricular diastolic dysfunction. Atypical septal motion consistent with paced rhythm. Mildly dilated right ventricle with normal appearing function. Mild tricuspid regurgitation. Moderate pulmonary hypertension. A device lead was visualized in the right atrium and right ventricle. Will stop heparin gtt given preserved EF. Asa, statin, and bb. Cardiology signing off. Reconsult PRN. (3) CAD (coronary artery disease) Current Visit: Yes Status: Acute Continue asa, statin, and bb. Qualifiers: Coronary Disease-Associated Artery/Lesion type: redding artery [place] vs. transplanted heart: redding heart Associated angina: without angina Qualified Code(s): I25.10 - Atherosclerotic heart disease of redding coronary artery without angina pectoris (4) Atrial fibrillation Current Visit: Yes Status: Acute Reports h/o atrial fibrillation. He was previously ion coumadin. This was discontinued due to GI bleed. Currently NSR, possible PAF on tele, but rate controlled. AVG HR 73. Continue asa only for anticoagulation. Continue BB and amiodarone. Qualifiers: Atrial fibrillation type: paroxysmal Qualified Code(s): I48.0 - Paroxysmal atrial fibrillation Discussion w patient/family: The assessment and plan as outlined above was discussed with the patient and/or family members who expressed understanding and agreement. All questions were answered. Thank you for involving us in the care of your patient. Please call with any questions. I will discuss all the above with Dr. Meza and make changes as necessary. Subjective Principal diagnosis: Elevated troponin, CHF Interval history: Pt denies chest pain overnight. Reports continued dyspnea. Troponins downtrended ---0.27, 0.33, 0.29, 0.23. Echo resulted--LVEF 55-60%. Not all LV segments were well visualized, but overall LV function appears normal. Mild left ventricular diastolic dysfunction. Atypical septal motion consistent with paced rhythm. Mildly dilated right ventricle with normal appearing function. Mild tricuspid regurgitation. Moderate pulmonary hypertension. A device lead was visualized in the right atrium and right ventricle. Objective Vital Signs, Last 4 Hours Resp BP Pulse Ox 11/08/17 10:03 16 110/58 95 Vital Signs Temp Pulse Resp BP Pulse Ox 11/08/17 10:03 16 110/58 95 11/08/17 07:06 98.6 F 74 17 110/58 90 11/08/17 04:36 98.3 F 78 16 110/61 94 11/08/17 04:35 16 94 11/07/17 23:16 98.6 F 72 19 97/53 97 11/07/17 22:09 18 87 11/07/17 18:54 99.9 F H 80 17 105/54 96 11/07/17 15:50 16 94 11/07/17 15:04 98 F 85 16 111/64 94 Intake and Output 11/07/17 11/08/17 11/08/17 23:59 07:59 15:59 Intake Total 197 / 197 303 / 303 Output Total 350 / 350 Balance -153 / -153 303 / 303 Intake: IV Fluids 197 / 197 303 / 303 Heparin 25,000 UNIT/500 ML D5W / 197 303 / 303 25,000 unit In 500 ml @ 10.8 UNIT/KG/HR 19.821 mls/hr IVC . Q24H [facility] Rx#:[id number] Oral 0 / 0 0 / 0 Output: Urine 350 / 350 Other: Meal Breakfast Percent of Meal Consumed 0% Weight 92.2 kg Blood Glucose* 154 173 117 Patient Weight 11/08/17 23:59 Weight 92.2 kg General: Conversant, No Apparent Distress HEENT: Atraumatic, Normocephaly, Mucus Membranes Moist Neck: Normal carotid pulses Cardiac: Reg Rate and Rhythm, Normal S1 and S2, No Murmur Lungs: Other (diminished ) Neuro: Alert and responsive, No focal deficits noted Abdomen: Soft, Non-Tender Skin: No rashes noted on visualized skin Musculoskeletal: No Chest Wall Tenderness Extremities: Other (trace BLE edema) Results 11/08/17 06:51 11/08/17 06:51 Lab Results 11/07/17 11/07/17 11/08/17 13:37 20:36 06:51 WBC 6.4 Hgb 9.8 L Hct 32.9 L Plt Count 157 APTT 46.5 H 46.6 H Sodium Potassium Chloride Carbon Dioxide BUN Creatinine Glucose Calcium Magnesium 11/08/17 11/08/17 06:51 06:51 WBC Hgb Hct Plt Count APTT 62.8 H Sodium 137 Potassium 4.1 Chloride 104 Carbon Dioxide 25 BUN 19 Creatinine 1.42 H Glucose 151 H Calcium 7.8 L Magnesium 2.1 Short CBC 11/08/17 Range/Units 06:51 WBC 6.4 (4.3-11.1) K/mcL Hgb 9.8 L (12.9-16.9) g/dL Hct 32.9 L (37.5-50.1) % Plt Count 157 (140-400) K/mcL Neutrophils # 4.5 (1.6-8.9) K/mcL BMP 11/08/17 Range/Units 06:51 Sodium 137 (136-145) mEq/L Potassium 4.1 (3.5-5.1) mEq/L Chloride 104 (98-107) mEq/L Carbon Dioxide 25 (23-29) mEq/L BUN 19 (8-23) mg/dL Creatinine 1.42 H (0.70-1.30) mg/dL Glucose 151 H (70-105) mg/dL Calcium 7.8 L (8.6-10.3) mg/dL Impressions Echocardiogram 11/07/17 10:10 Impressions: LVEF 55-60%. Not all LV segments were well visualized, but overall LV function appears normal. Normal LV chamber size and wall thickness. Mild left ventricular diastolic dysfunction. Atypical septal motion consistent with paced rhythm. Mildly dilated right ventricle with normal appearing function. Mild tricuspid regurgitation. Moderate pulmonary hypertension. A device lead was visualized in the right atrium and right ventricle. Findings: Study Quality * Technically sub-optimal due to poor echocardiographic windows. ECG Findings * Paced rhythm. Left Ventricle * LVEF 55-60%. Not all LV segments were well visualized, but overall LV function appears normal. * Normal LV chamber size and wall thickness. * Mild left ventricular diastolic dysfunction. * Atypical septal motion consistent with paced rhythm. Right Ventricle * Mildly dilated right ventricle with normal appearing function. Left Atrium * Mildly dilated left atrium. Right Atrium * Mildly dilated right atrium. Interatrial Septum * Interatrial septum not well evaluated. Aortic Valve * Aortic valve not well visualized. * Grossly, the aortic valve is calcified. * No aortic stenosis. * No aortic regurgitation. Mitral Valve * Mild mitral annular calcification. * No mitral stenosis. * No mitral regurgitation. Tricuspid Valve * Normal tricuspid valve structure. * Mild tricuspid regurgitation. * Moderate pulmonary hypertension. Pulmonic Valve * Pulmonic valve is not well visualized. * No pulmonic regurgitation. Aorta * Normally sized aortic root. Pericardium * The pericardium appears normal. IVC * Normal IVC dimensions and inspiratory collapse. Device lead * A device lead was visualized in the right atrium and right ventricle. Pulmonary Artery * Normal visualized portions of the main pulmonary artery. Active Medications Albuterol/Ipratropium (Duoneb) 3 ml IH QIDR [facility] Stop: 05/08/18 23:01 Last Admin: 11/08/17 10:03 Dose: 3 ml Albuterol/Ipratropium (Duoneb) 3 ml IH [id number] PRN PRN Reason: Shortness Of Breath/Wheezing Stop: 05/08/18 20:46 Amiodarone HCl (Cordarone) 200 mg PO DAILY [facility] Stop: 05/09/18 09:01 Last Admin: 11/08/17 08:32 Dose: 200 mg Ascorbic Acid (Vitamin C) 500 mg PO DAILY [facility] Stop: 05/09/18 09:01 Last Admin: 11/08/17 08:32 Dose: 500 mg Aspirin (Aspirin Ec) 81 mg PO DAILY [facility] Stop: 05/09/18 13:16 Last Admin: 11/08/17 08:30 Dose: 81 mg Budesonide/Formoterol Fumarate (Symbicort) 2 puff IH BIDRESP [facility] Stop: 05/08/18 22:01 Last Admin: 11/08/17 10:05 Dose: 2 puff Calcitriol (Rocaltrol) 0.25 mcg PO MOWEFR [facility] Stop: 05/08/18 09:01 Last Admin: 11/08/17 08:34 Dose: 0.25 mcg Cyanocobalamin (Vitamin B12) 1,000 mcg PO BID [facility] Stop: 05/08/18 21:01 Last Admin: 11/08/17 08:30 Dose: 1,000 mcg Dextrose/Water (Dextrose 50% (Syg)) 25 ml IVP AD PRN PRN Reason: Hypoglycemia Stop: 05/08/18 21:09 Docusate Sodium (Colace) 100 mg PO BID [facility] PRN Reason: Protocol Stop: 05/08/18 21:01 Last Admin: 11/08/17 08:30 Dose: 100 mg Glucagon (Glucagen) 1 mg IM ONCE PRN PRN Reason: Hypoglycemia Stop: 05/08/18 21:09 Glucose (Gluctose) 15 gm PO ONCE PRN PRN Reason: Hypoglycemia Stop: 05/08/18 21:09 Glucose (Gluctose) 30 gm PO ONCE PRN PRN Reason: Hypoglycemia Stop: 05/08/18 21:09 Guaifenesin (Robitussin/Dm) 5 ml PO Q6H PRN PRN Reason: Cough Heparin Sodium (Porcine) (Heparin) 4,000 unit IVP Q6HR PRN PRN Reason: SEE COMMENTS Stop: 05/08/18 20:05 Heparin Sodium (Porcine) (Heparin) 2,000 unit IVP Q6H PRN PRN Reason: SEE COMMENTS Stop: 05/08/18 20:05 Last Admin: 11/08/17 01:03 Dose: 2,000 unit Heparin Sodium/Dextrose (Heparin 25,000 Unit/500 Ml D5w) 25,000 unit in 500 mls @ 19.821 mls/hr IVC .Q24H [facility]A; 10.8 UNIT/KG/HR PRN Reason: Protocol Stop: 05/08/18 20:16 Last Admin: 11/08/17 12:06 Dose: 17.1 unit/kg/hr, 31.4 mls/hr Dextrose (Dextrose 5%) 1,000 mls @ 100 mls/hr IVC .Q10H PRN PRN Reason: HYPOGLYCEMIA Stop: 05/08/18 21:09 Insulin Detemir (Levemir) 10 unit SQ QAM [facility] Stop: 05/09/18 09:01 Last Admin: 11/08/17 08:34 Dose: 10 unit Insulin Detemir (Levemir) 15 unit SQ HS [facility] Stop: 05/08/18 21:01 Last Admin: 11/07/17 20:16 Dose: 15 unit Insulin Human Lispro (Humalog) 0 units SQ TIDAC [facility] PRN Reason: Protocol Stop: 05/09/18 07:31 Last Admin: 11/08/17 12:03 Dose: Not Given Insulin Human Lispro (Humalog) 0 units SQ HS [facility] PRN Reason: Protocol Stop: 05/09/18 21:01 Last Admin: 11/08/17 01:00 Dose: Not Given Levothyroxine Sodium (Synthroid) 125 mcg PO 0630 [facility] Stop: 05/09/18 06:31 Last Admin: 11/08/17 06:43 Dose: 125 mcg Metoprolol Succinate (Toprol Xl) 12.5 mg PO DAILY [facility] Stop: 05/09/18 10:16 Last Admin: 11/08/17 08:31 Dose: 12.5 mg Morphine Sulfate (Morphine Sulfate) 2 mg IVP Q4HR PRN PRN Reason: Severe Pain (7-10) Stop: 05/08/18 20:46 Naloxone HCl (Narcan) 0.4 mg IVP Q2MIN PRN PRN Reason: Opioid Reversal Stop: 05/08/18 20:46 Nitroglycerin (Nitroglycerin) 0.4 mg SL Q5M PRN PRN Reason: Chest Pain Stop: 05/08/18 20:42 Senna/Docusate Sodium (Senna Plus) 1 each PO BID PRN; Protocol PRN Reason: Constipation Stop: 05/08/18 20:42 Simvastatin (Zocor) 20 mg PO HS [facility] PRN Reason: Protocol Stop: 05/08/18 21:01 Last Admin: 11/07/17 20:16 Dose: 20 mg Tamsulosin HCl (Flomax) 0.4 mg PO QPM [facility] PRN Reason: Protocol Stop: 05/09/18 18:01 Last Admin: 11/07/17 16:26 Dose: 0.4 mg Tramadol HCl (Ultram) 50 mg PO TID PRN PRN Reason: Pain Stop: 05/08/18 20:42 Last Admin: 11/06/17 22:39 Dose: 50 mg Vitamin D (Vitamin D) 2,000 unit PO DAILY [facility] Stop: 05/09/18 09:01 Last Admin: 11/08/17 08:30 Dose: 2,000 unit - Imaging and Cardiology Echo: report reviewed - EKG Interpretation EKG results cardiology: other (12 hr tele AVG HR 73) Consult Discharge Plan - Plan [facility]errals: [facility] [Primary Care Provider] -
[2017-11-08] MEDS: Furosemide 20 MG TABLET PO SCH (16:30)
[2017-11-08] MEDS: *HR* Heparin 5,000 UNIT/ML VIAL SQ SCH (16:32)
--- NOTE | 2017-11-08 18:09 | Internal Med Progress Note ---
Date of Encounter: 11/08/17 Time of Encounter: 11:00 - Assessment and plan (1) Non-STEMI (non-ST elevated myocardial infarction) Current Visit: Yes Status: Acute Assessment and plan: -Suspect demand ischemia with CHF exacerbation -Audiology consult with recommendations to discontinue heparin gtt given preserved EF. -Asa, statin, and bb. (2) Congestive heart failure Current Visit: Yes Status: Acute Assessment and plan: -Recommendations for echocardiogram which showed: Echo --LVEF 55-60%. Not all LV segments were well visualized, but overall LV function appears normal. Mild left ventricular diastolic dysfunction. Atypical septal motion consistent with paced rhythm. Mildly dilated right ventricle with normal appearing function. Mild tricuspid regurgitation. Moderate pulmonary hypertension. A device lead was visualized in the right atrium and right ventricle. -Recommendations to start PO Lasix 40mg daily for maintenance dosing. Qualifiers: Congestive heart failure type: unspecified congestive heart failure type Congestive heart failure chronicity: acute Qualified Code(s): I50.9 - Heart failure, unspecified (3) COPD (chronic obstructive pulmonary disease) Current Visit: Yes Status: Acute Assessment and plan: -Patient still requiring oxygen supplementation and with expiratory wheezes -Continue duo nebs Qualifiers: Emphysema type: unspecified Qualified Code(s): J43.9 - Emphysema, unspecified (4) Anemia Current Visit: Yes Status: Acute Assessment and plan: -Stable; continue to monitor. Qualifiers: Chronic kidney disease stage: stage 3 (moderate) Qualified Code(s): N18.3 - Chronic kidney disease, stage 3 (moderate); D63.1 - Anemia in chronic kidney disease; D63.1 - Anemia in chronic kidney disease - Subjective Interval history: Patient with elevated cardiac biomarkers that are now trending downward. Patient continues to require oxygen supplementation. - Constitutional Vitals: Temp Pulse Resp BP Pulse Ox 98.6 F 72 15 123/62 90 11/08/17 16:30 11/08/17 16:30 11/08/17 16:30 11/08/17 16:30 11/08/17 16:30 - Respiratory Respiratory exam: Present: CTAB. Absent: accessory muscle use, rales, rhonchi, wheezes - Cardiovascular Cardiovascular exam: Present: RRR, +S1, +S2. Absent: diastolic murmur, gallop, rubs, systolic murmur Internal Medicine: Result - Labs CBC & Chem 7: 11/08/17 06:51 11/08/17 06:51 Labs: Short CBC 11/08/17 Range/Units 06:51 WBC 6.4 (4.3-11.1) K/mcL Hgb 9.8 L (12.9-16.9) g/dL Hct 32.9 L (37.5-50.1) % Plt Count 157 (140-400) K/mcL Neutrophils # 4.5 (1.6-8.9) K/mcL BMP 11/08/17 06:51 Sodium 137 Potassium 4.1 Chloride 104 Carbon Dioxide 25 BUN 19 Creatinine 1.42 H Glucose 151 H Calcium 7.8 L - ABG Interpretation ABG results: PT/INR, D-dimer PT 13.9 Seconds (9.4-12.1) H 11/06/17 18:17 - Impressions Impressions Echocardiogram 11/07/17 10:10 Impressions: LVEF 55-60%. Not all LV segments were well visualized, but overall LV function appears normal. Normal LV chamber size and wall thickness. Mild left ventricular diastolic dysfunction. Atypical septal motion consistent with paced rhythm. Mildly dilated right ventricle with normal appearing function. Mild tricuspid regurgitation. Moderate pulmonary hypertension. A device lead was visualized in the right atrium and right ventricle. Findings: Study Quality * Technically sub-optimal due to poor echocardiographic windows. ECG Findings * Paced rhythm. Left Ventricle * LVEF 55-60%. Not all LV segments were well visualized, but overall LV function appears normal. * Normal LV chamber size and wall thickness. * Mild left ventricular diastolic dysfunction. * Atypical septal motion consistent with paced rhythm. Right Ventricle * Mildly dilated right ventricle with normal appearing function. Left Atrium * Mildly dilated left atrium. Right Atrium * Mildly dilated right atrium. Interatrial Septum * Interatrial septum not well evaluated. Aortic Valve * Aortic valve not well visualized. * Grossly, the aortic valve is calcified. * No aortic stenosis. * No aortic regurgitation. Mitral Valve * Mild mitral annular calcification. * No mitral stenosis. * No mitral regurgitation. Tricuspid Valve * Normal tricuspid valve structure. * Mild tricuspid regurgitation. * Moderate pulmonary hypertension. Pulmonic Valve * Pulmonic valve is not well visualized. * No pulmonic regurgitation. Aorta * Normally sized aortic root. Pericardium * The pericardium appears normal. IVC * Normal IVC dimensions and inspiratory collapse. Device lead * A device lead was visualized in the right atrium and right ventricle. Pulmonary Artery * Normal visualized portions of the main pulmonary artery. Consult Discharge Plan - Plan [facility]errals: [facility] [Primary Care Provider] -
[2017-11-09 03:39] LABS: Basophils % 0.4 %; Eosinophils # 0.1 K/mcL (0.0-0.6); Eosinophils % 1.5 %; Hemoglobin 9.6 g/dL (12.9-16.9); Immature Granulocytes % 0.2 % (0-4); Lymphocytes # 1.5 K/mcL (0.6-4.6); Lymphocytes % 27.8 %; Mean Corpuscular Hemoglobin 28.6 pg (28.0-33.3); Mean Corpuscular Volume 92.3 fL (83.0-100.0); Mean Platelet Volume 8.8 fL (9.4-12.4); Monocytes # 0.4 K/mcL (0.0-1.3); Neutrophils # 3.3 K/mcL (1.6-8.9); Platelet Count 161 K/mcL (140-400); Red Blood Count 3.36 M/mcL (4.19-5.50); Red Cell Distribution Width 18.4 % (11.5-14.5); Segmented Neutrophils % 62.1 %
[2017-11-09 04:11] LABS: Calcium 8.1 mg/dL (8.6-10.3); Magnesium 2.2 mg/dL (1.6-2.6)
[2017-11-09] MEDS: Ipratropium/Albuterol Neb 3 ML IH SCH ×4 (04:52→22:52)
[2017-11-09] MEDS: *HR* Heparin 5,000 UNIT/ML VIAL SQ SCH ×2 (05:40→16:54)
[2017-11-09] MEDS: Insulin LISPRO 300 UNITS/3 ML VIAL SQ SCH ×4 (07:43→22:21)
[2017-11-09] MEDS: Furosemide 20 MG TABLET PO SCH (09:02)
[2017-11-09] MEDS: *HR* Amiodarone 200 MG TABLET PO SCH (09:02)
[2017-11-09] MEDS: Cholecalciferol (D-3) 1,000 UNIT TABLET PO SCH (09:02)
[2017-11-09] MEDS: Ascorbic Acid 500 MG TABLET PO SCH (09:02)
[2017-11-09] MEDS: Aspirin Enteric Coated 81 MG Tablet PO SCH (09:02)
[2017-11-09] MEDS: Metoprolol XL (24 HR) Succ 25 MG TAB.ER.24H PO SCH (09:02)
[2017-11-09] MEDS: Cyanocobalamin (B-12) 1,000 MCG TABLET PO SCH ×2 (09:05→22:21)
[2017-11-09] MEDS: Budesonide/Formoterol 160/4.5 MDI IH SCH ×2 (11:30→22:53)
[2017-11-09] MEDS: Insulin DETEMIR 100 UNIT/ML X5UNITS SQ SCH ×2 (13:00→22:21)
--- NOTE | 2017-11-09 18:01 | Internal Med Progress Note ---
Date of Encounter: 11/09/17 Time of Encounter: 11:00 - Assessment and plan (1) Non-STEMI (non-ST elevated myocardial infarction) Current Visit: Yes Status: Acute Assessment and plan: -Suspect demand ischemia with CHF exacerbation -Cardiology consulted with recommendations to discontinue heparin gtt given preserved EF. -Asa, statin, and bb. (2) Congestive heart failure Current Visit: Yes Status: Acute Assessment and plan: -Recommendations for echocardiogram which showed: Echo --LVEF 55-60%. Not all LV segments were well visualized, but overall LV function appears normal. Mild left ventricular diastolic dysfunction. Atypical septal motion consistent with paced rhythm. Mildly dilated right ventricle with normal appearing function. Mild tricuspid regurgitation. Moderate pulmonary hypertension. A device lead was visualized in the right atrium and right ventricle. -Recommendations to start PO Lasix 40mg daily for maintenance dosing. Qualifiers: Congestive heart failure type: unspecified congestive heart failure type Congestive heart failure chronicity: acute Qualified Code(s): I50.9 - Heart failure, unspecified (3) COPD (chronic obstructive pulmonary disease) Current Visit: Yes Status: Acute Assessment and plan: -Patient still requiring oxygen supplementation and with expiratory wheezes -Continue duo nebs Qualifiers: Emphysema type: unspecified Qualified Code(s): J43.9 - Emphysema, unspecified (4) Anemia Current Visit: Yes Status: Acute Assessment and plan: -Stable; continue to monitor. Qualifiers: Chronic kidney disease stage: stage 3 (moderate) Qualified Code(s): N18.3 - Chronic kidney disease, stage 3 (moderate); D63.1 - Anemia in chronic kidney disease; D63.1 - Anemia in chronic kidney disease - Subjective Interval history: Patient with elevated cardiac biomarkers that are now trending downward. Patient continues to require oxygen supplementation. Awaiting placement at [facility] [facility] - Constitutional Vitals: Temp Pulse Resp BP Pulse Ox 98.2 F 74 18 110/56 96 11/09/17 07:05 11/09/17 15:00 11/09/17 15:00 11/09/17 15:00 11/09/17 15:00 - Respiratory Respiratory exam: Present: CTAB. Absent: accessory muscle use, rales, rhonchi, wheezes - Cardiovascular Cardiovascular exam: Present: RRR, +S1, +S2. Absent: diastolic murmur, gallop, rubs, systolic murmur Internal Medicine: Result - Labs CBC & Chem 7: 11/09/17 03:19 11/09/17 03:19 Labs: Short CBC 11/09/17 Range/Units 03:19 WBC 5.3 (4.3-11.1) K/mcL Hgb 9.6 L (12.9-16.9) g/dL Hct 31.0 L (37.5-50.1) % Plt Count 161 (140-400) K/mcL Neutrophils # 3.3 (1.6-8.9) K/mcL BMP 11/09/17 03:19 Sodium 142 Potassium 4.0 Chloride 106 Carbon Dioxide 27 BUN 17 Creatinine 1.44 H Glucose 84 Calcium 8.1 L - ABG Interpretation ABG results: PT/INR, D-dimer PT 13.9 Seconds (9.4-12.1) H 11/06/17 18:17 Consult Discharge Plan - Plan [facility]errals: [facility] [Primary Care Provider] -
[2017-11-10] MEDS: Ipratropium/Albuterol Neb 3 ML IH SCH ×4 (03:31→23:10)
[2017-11-10] MEDS: *HR* Heparin 5,000 UNIT/ML VIAL SQ SCH ×2 (06:35→17:05)
[2017-11-10] MEDS: Insulin LISPRO 300 UNITS/3 ML VIAL SQ SCH ×4 (07:51→20:04)
[2017-11-10 08:57] LABS: Basophils % 0.1 %; Eosinophils # 0.1 K/mcL (0.0-0.6); Eosinophils % 1.2 %; Hematocrit 35.4 % (37.5-50.1); Hemoglobin 10.9 g/dL (12.9-16.9); Immature Granulocytes % 0.3 % (0-4); Immature Platelets 2.5 % (1.1-6.1); Lymphocytes % 29.8 %; Mean Corpuscular HGB Conc 30.8 g/dL (31.6-35.5); Mean Corpuscular Hemoglobin 28.5 pg (28.0-33.3); Mean Corpuscular Volume 92.7 fL (83.0-100.0); Mean Platelet Volume 9.4 fL (9.4-12.4); Monocytes # 0.4 K/mcL (0.0-1.3); Monocytes % 5.7 %; Neutrophils # 4.3 K/mcL (1.6-8.9); Platelet Count 164 K/mcL (140-400); Red Blood Count 3.82 M/mcL (4.19-5.50); Red Cell Distribution Width 17.9 % (11.5-14.5); Segmented Neutrophils % 62.9 %
[2017-11-10 09:14] LABS: BUN/Creatinine Ratio 14 (6-26); Blood Urea Nitrogen 19 mg/dL (8-23); Calcium 8.3 mg/dL (8.6-10.3); Carbon Dioxide 26 mEq/L (23-29); Chloride 105 mEq/L (98-107); Glucose 114 mg/dL (70-105); Osmolality,Calculated 289 (280-300); Potassium 4.3 mEq/L (3.5-5.1); Sodium 138 mEq/L (136-145); eGFR For African Americans > 60 (> 60); eGFR For Non-African Americans 50 (> 60)
[2017-11-10] MEDS: Cholecalciferol (D-3) 1,000 UNIT TABLET PO SCH (09:15)
[2017-11-10] MEDS: Cyanocobalamin (B-12) 1,000 MCG TABLET PO SCH ×2 (09:15→20:04)
[2017-11-10] MEDS: Aspirin Enteric Coated 81 MG Tablet PO SCH (09:16)
[2017-11-10] MEDS: Furosemide 40 MG TABLET PO SCH (09:16)
[2017-11-10] MEDS: Metoprolol XL (24 HR) Succ 25 MG TAB.ER.24H PO SCH (09:16)
[2017-11-10] MEDS: *HR* Amiodarone 200 MG TABLET PO SCH (09:16)
[2017-11-10] MEDS: Insulin DETEMIR 100 UNIT/ML X5UNITS SQ SCH ×2 (09:16→20:04)
[2017-11-10] MEDS: Ascorbic Acid 500 MG TABLET PO SCH (09:16)
[2017-11-10] MEDS: Budesonide/Formoterol 160/4.5 MDI IH SCH ×2 (10:02→23:10)
--- NOTE | 2017-11-10 18:02 | Internal Med Progress Note ---
Date of Encounter: 11/10/17 Time of Encounter: 11:00 - Assessment and plan (1) Non-STEMI (non-ST elevated myocardial infarction) Current Visit: Yes Status: Acute Assessment and plan: -Suspect demand ischemia with CHF exacerbation -Cardiology consulted with recommendations to discontinue heparin gtt given preserved EF. -Asa, statin, and bb. (2) Congestive heart failure Current Visit: Yes Status: Acute Assessment and plan: -Recommendations for echocardiogram which showed: Echo --LVEF 55-60%. Not all LV segments were well visualized, but overall LV function appears normal. Mild left ventricular diastolic dysfunction. Atypical septal motion consistent with paced rhythm. Mildly dilated right ventricle with normal appearing function. Mild tricuspid regurgitation. Moderate pulmonary hypertension. A device lead was visualized in the right atrium and right ventricle. -Recommendations to start PO Lasix 40mg daily for maintenance dosing. Qualifiers: Congestive heart failure type: unspecified congestive heart failure type Congestive heart failure chronicity: acute Qualified Code(s): I50.9 - Heart failure, unspecified (3) COPD (chronic obstructive pulmonary disease) Current Visit: Yes Status: Acute Assessment and plan: -Patient still requiring oxygen supplementation and with expiratory wheezes -Continue duo nebs Qualifiers: Emphysema type: unspecified Qualified Code(s): J43.9 - Emphysema, unspecified (4) Anemia Current Visit: Yes Status: Acute Assessment and plan: -Stable; continue to monitor. Qualifiers: Chronic kidney disease stage: stage 3 (moderate) Qualified Code(s): N18.3 - Chronic kidney disease, stage 3 (moderate); D63.1 - Anemia in chronic kidney disease; D63.1 - Anemia in chronic kidney disease - Subjective Interval history: Patient continues to require oxygen supplementation. Awaiting placement at [facility] - Constitutional Vitals: Temp Pulse Resp BP Pulse Ox 98.1 F 72 18 113/59 87 11/10/17 16:00 11/10/17 16:00 11/10/17 16:00 11/10/17 16:00 11/10/17 16:00 - Respiratory Respiratory exam: Present: CTAB. Absent: accessory muscle use, rales, rhonchi, wheezes - Cardiovascular Cardiovascular exam: Present: RRR, +S1, +S2. Absent: diastolic murmur, gallop, rubs, systolic murmur Internal Medicine: Result - Labs CBC & Chem 7: 11/10/17 08:15 11/10/17 08:15 Labs: Short CBC 11/10/17 Range/Units 08:15 WBC 6.8 (4.3-11.1) K/mcL Hgb 10.9 L (12.9-16.9) g/dL Hct 35.4 L (37.5-50.1) % Plt Count 164 (140-400) K/mcL Neutrophils # 4.3 (1.6-8.9) K/mcL BMP 11/10/17 08:15 Sodium 138 Potassium 4.3 Chloride 105 Carbon Dioxide 26 BUN 19 Creatinine 1.40 H Glucose 114 H Calcium 8.3 L - ABG Interpretation ABG results: PT/INR, D-dimer PT 13.9 Seconds (9.4-12.1) H 11/06/17 18:17 Consult Discharge Plan - Plan Referrals: [facility],PCP [Primary Care Provider] - 11/16/17 10:30 am
[2017-11-11] MEDS: Ipratropium/Albuterol Neb 3 ML IH SCH ×4 (04:19→22:00)
[2017-11-11] MEDS: *HR* Heparin 5,000 UNIT/ML VIAL SQ SCH ×2 (05:48→17:41)
[2017-11-11] MEDS: Insulin LISPRO 300 UNITS/3 ML VIAL SQ SCH ×4 (08:23→20:05)
[2017-11-11] MEDS: Ascorbic Acid 500 MG TABLET PO SCH (08:36)
[2017-11-11] MEDS: Furosemide 40 MG TABLET PO SCH (08:36)
[2017-11-11] MEDS: Aspirin Enteric Coated 81 MG Tablet PO SCH (08:36)
[2017-11-11] MEDS: Metoprolol XL (24 HR) Succ 25 MG TAB.ER.24H PO SCH (08:36)
[2017-11-11] MEDS: Insulin DETEMIR 100 UNIT/ML X5UNITS SQ SCH ×2 (08:36→20:05)
[2017-11-11] MEDS: Cholecalciferol (D-3) 1,000 UNIT TABLET PO SCH (08:36)
[2017-11-11] MEDS: *HR* Amiodarone 200 MG TABLET PO SCH (08:36)
[2017-11-11] MEDS: Cyanocobalamin (B-12) 1,000 MCG TABLET PO SCH ×2 (08:37→20:04)
[2017-11-11] MEDS: Budesonide/Formoterol 160/4.5 MDI IH SCH ×2 (10:50→22:00)
--- NOTE | 2017-11-11 17:33 | Internal Med Progress Note ---
Date of Encounter: 11/11/17 Time of Encounter: 11:00 - Assessment and plan (1) Non-STEMI (non-ST elevated myocardial infarction) Current Visit: Yes Status: Acute Assessment and plan: -Suspect demand ischemia with CHF exacerbation -Cardiology consulted with recommendations to discontinue heparin gtt given preserved EF. -Asa, statin, and bb. (2) Congestive heart failure Current Visit: Yes Status: Acute Assessment and plan: -Recommendations for echocardiogram which showed: Echo --LVEF 55-60%. Not all LV segments were well visualized, but overall LV function appears normal. Mild left ventricular diastolic dysfunction. Atypical septal motion consistent with paced rhythm. Mildly dilated right ventricle with normal appearing function. Mild tricuspid regurgitation. Moderate pulmonary hypertension. A device lead was visualized in the right atrium and right ventricle. -Recommendations to start PO Lasix 40mg daily for maintenance dosing. Qualifiers: Congestive heart failure type: unspecified congestive heart failure type Congestive heart failure chronicity: acute Qualified Code(s): I50.9 - Heart failure, unspecified (3) COPD (chronic obstructive pulmonary disease) Current Visit: Yes Status: Acute Assessment and plan: -Patient still requiring oxygen supplementation and with expiratory wheezes -Continue duo nebs Qualifiers: Qualified Code(s): J44.9 - Chronic obstructive pulmonary disease, unspecified (4) Anemia Current Visit: Yes Status: Acute Assessment and plan: -Stable; continue to monitor. Qualifiers: Qualified Code(s): D64.9 - Anemia, unspecified - Subjective Interval history: Patient continues to require oxygen supplementation. Awaiting placement at [facility] - Constitutional Vitals: Temp Pulse Resp BP Pulse Ox 98.2 F 74 18 106/52 92 11/11/17 16:00 11/11/17 16:00 11/11/17 16:06 11/11/17 16:00 11/11/17 16:06 - Respiratory Respiratory exam: Present: CTAB. Absent: accessory muscle use, rales, rhonchi, wheezes - Cardiovascular Cardiovascular exam: Present: RRR, +S1, +S2. Absent: diastolic murmur, gallop, rubs, systolic murmur Internal Medicine: Result - Labs CBC & Chem 7: 11/10/17 08:15 11/10/17 08:15 - ABG Interpretation ABG results: PT/INR, D-dimer PT 13.9 Seconds (9.4-12.1) H 11/06/17 18:17 Consult Discharge Plan - Plan Referrals: TRACY,PCP [Primary Care Provider] - 11/16/17 10:30 am
[2017-11-12] MEDS: Ipratropium/Albuterol Neb 3 ML IH SCH ×4 (04:35→22:23)
[2017-11-12] MEDS: Furosemide 40 MG TABLET PO SCH (10:24)
[2017-11-12] MEDS: Cyanocobalamin (B-12) 1,000 MCG TABLET PO SCH ×2 (10:24→19:52)
[2017-11-12] MEDS: Ascorbic Acid 500 MG TABLET PO SCH (10:24)
[2017-11-12] MEDS: Cholecalciferol (D-3) 1,000 UNIT TABLET PO SCH (10:24)
[2017-11-12] MEDS: Aspirin Enteric Coated 81 MG Tablet PO SCH (10:24)
[2017-11-12] MEDS: *HR* Amiodarone 200 MG TABLET PO SCH (10:24)
[2017-11-12] MEDS: Metoprolol XL (24 HR) Succ 25 MG TAB.ER.24H PO SCH (10:24)
[2017-11-12] MEDS: Insulin DETEMIR 100 UNIT/ML X5UNITS SQ SCH ×2 (10:25→19:52)
[2017-11-12] MEDS: *HR* Heparin 5,000 UNIT/ML VIAL SQ SCH ×2 (10:25→17:37)
[2017-11-12] MEDS: Insulin LISPRO 300 UNITS/3 ML VIAL SQ SCH ×4 (10:25→19:52)
[2017-11-12] MEDS: Budesonide/Formoterol 160/4.5 MDI IH SCH ×2 (11:01→22:23)
--- NOTE | 2017-11-12 16:12 | Internal Med Progress Note ---
Date of Encounter: 11/12/17 Time of Encounter: 08:00 - Assessment and plan (1) Non-STEMI (non-ST elevated myocardial infarction) Current Visit: Yes Status: Acute Assessment and plan: -Suspect demand ischemia with CHF exacerbation -Cardiology consulted with recommendations to discontinue heparin gtt given preserved EF. -Asa, statin, and bb. (2) Congestive heart failure Current Visit: Yes Status: Acute Assessment and plan: -Recommendations for echocardiogram which showed: Echo --LVEF 55-60%. Not all LV segments were well visualized, but overall LV function appears normal. Mild left ventricular diastolic dysfunction. Atypical septal motion consistent with paced rhythm. Mildly dilated right ventricle with normal appearing function. Mild tricuspid regurgitation. Moderate pulmonary hypertension. A device lead was visualized in the right atrium and right ventricle. -Recommendations to start PO Lasix 40mg daily for maintenance dosing. Qualifiers: Congestive heart failure type: unspecified congestive heart failure type Congestive heart failure chronicity: acute Qualified Code(s): I50.9 - Heart failure, unspecified (3) COPD (chronic obstructive pulmonary disease) Current Visit: Yes Status: Acute Assessment and plan: -Patient still requiring oxygen supplementation and with expiratory wheezes -Continue duo nebs Qualifiers: Emphysema type: unspecified Qualified Code(s): J43.9 - Emphysema, unspecified (4) Anemia Current Visit: Yes Status: Acute Assessment and plan: -Stable; continue to monitor. Qualifiers: Qualified Code(s): D64.9 - Anemia, unspecified - Subjective Interval history: Patient continues to require oxygen supplementation. Awaiting placement at [facility] Patient will need radiation therapy for lung cancer on 11/14/17 at the oncologist's Center here at [facility] - Constitutional Vitals: Temp Pulse Resp BP Pulse Ox 97.5 F L 79 16 112/55 88 11/12/17 08:00 11/12/17 08:00 11/12/17 15:26 11/12/17 08:00 11/12/17 15:26 Internal Medicine: Result - Labs CBC & Chem 7: 11/10/17 08:15 11/10/17 08:15 - ABG Interpretation ABG results: PT/INR, D-dimer PT 13.9 Seconds (9.4-12.1) H 11/06/17 18:17 Consult Discharge Plan - Plan [facility]errals: [facility] [[facility] Care Provider] - 11/16/17 10:30 am
[2017-11-12] MEDS: traMADol 50 MG TABLET PO PRN (19:51)
[2017-11-13] MEDS: Ipratropium/Albuterol Neb 3 ML IH SCH ×4 (04:06→22:39)
[2017-11-13] MEDS: *HR* Heparin 5,000 UNIT/ML VIAL SQ SCH ×2 (06:08→17:23)
[2017-11-13] MEDS: Ascorbic Acid 500 MG TABLET PO SCH (07:57)
[2017-11-13] MEDS: Furosemide 40 MG TABLET PO SCH (07:57)
[2017-11-13] MEDS: *HR* Amiodarone 200 MG TABLET PO SCH (07:57)
[2017-11-13] MEDS: Cyanocobalamin (B-12) 1,000 MCG TABLET PO SCH ×2 (07:57→21:12)
[2017-11-13] MEDS: Aspirin Enteric Coated 81 MG Tablet PO SCH (07:57)
[2017-11-13] MEDS: Metoprolol XL (24 HR) Succ 25 MG TAB.ER.24H PO SCH (07:58)
[2017-11-13] MEDS: Cholecalciferol (D-3) 1,000 UNIT TABLET PO SCH (07:58)
[2017-11-13] MEDS: Insulin LISPRO 300 UNITS/3 ML VIAL SQ SCH ×4 (07:59→21:13)
[2017-11-13] MEDS: Insulin DETEMIR 100 UNIT/ML X5UNITS SQ SCH ×2 (08:02→21:13)
[2017-11-13 08:41] LABS: Basophils % 0.3 %; Eosinophils # 0.1 K/mcL (0.0-0.6); Eosinophils % 1.6 %; Hematocrit 35.5 % (37.5-50.1); Hemoglobin 11.1 g/dL (12.9-16.9); Immature Granulocytes % 0.3 % (0-4); Immature Platelets 1.3 % (1.1-6.1); Lymphocytes # 2.2 K/mcL (0.6-4.6); Lymphocytes % 30.2 %; Mean Corpuscular HGB Conc 31.3 g/dL (31.6-35.5); Mean Corpuscular Hemoglobin 28.9 pg (28.0-33.3); Mean Corpuscular Volume 92.4 fL (83.0-100.0); Mean Platelet Volume 8.3 fL (9.4-12.4); Monocytes # 0.4 K/mcL (0.0-1.3); Neutrophils # 4.5 K/mcL (1.6-8.9); Platelet Count 273 K/mcL (140-400); Red Blood Count 3.84 M/mcL (4.19-5.50); Red Cell Distribution Width 17.2 % (11.5-14.5); Segmented Neutrophils % 61.6 %
[2017-11-13 08:59] LABS: BUN/Creatinine Ratio 18 (6-26); Blood Urea Nitrogen 25 mg/dL (8-23); Calcium 9.4 mg/dL (8.6-10.3); Carbon Dioxide 29 mEq/L (23-29); Chloride 100 mEq/L (98-107); Glucose 135 mg/dL (70-105); Osmolality,Calculated 288 (280-300); Potassium 4.6 mEq/L (3.5-5.1); Sodium 136 mEq/L (136-145); eGFR For African Americans > 60 (> 60); eGFR For Non-African Americans 51 (> 60)
[2017-11-13] MEDS: Budesonide/Formoterol 160/4.5 MDI IH SCH ×2 (10:26→22:39)
--- NOTE | 2017-11-13 12:46 | Discharge Summary ---
Date of Encounter: 11/13/17 Time of Encounter: 09:00 - Discharge Diagnosis (1) Non-STEMI (non-ST elevated myocardial infarction) Priority: Secondary Status: Acute (2) Congestive heart failure Priority: Primary Status: Acute Qualifiers: Congestive heart failure type: unspecified congestive heart failure type Congestive heart failure chronicity: acute Qualified Code(s): I50.9 - Heart failure, unspecified (3) COPD (chronic obstructive pulmonary disease) Priority: Primary Status: Acute Qualifiers: Emphysema type: unspecified Qualified Code(s): J43.9 - Emphysema, unspecified (4) Anemia Priority: Secondary Status: Acute Qualifiers: Qualified Code(s): D64.9 - Anemia, unspecified - Discharge Medications Home Medications: Albuterol Sulfate [Albuterol Inhaler] 2 puff IH Q6HR PRN 09/28/15 [History] Amiodarone [Cordarone] 200 mg PO DAILY 09/28/15 [History] Ascorbic Acid [Vitamin C] 500 mg PO DAILY 09/28/15 [History] Aspirin Enteric Coated [Aspirin EC] 81 mg PO DAILY 09/28/15 [History] Cyanocobalamin (B-12) 1,000 mcg PO BID 09/28/15 [History] Mometasone Furoate [Asmanex] 2 puff IH BID 09/28/15 [History] Nitroglycerin [Nitrostat] 0.4 mg SL Q5M PRN 09/28/15 [History] Tiotropium [Spiriva] 18 mcg IH DAILY 09/28/15 [History] Acetaminophen [Tylenol] 650 mg PO TID PRN 08/01/17 [History] Cyclobenzaprine [Flexeril] 10 mg PO BID PRN 08/01/17 [History] Docusate Sodium [Dok] 100 mg PO BID 08/01/17 [History] Levothyroxine [Synthroid] 125 mcg PO 0630 08/01/17 [History] Tamsulosin [Flomax] 0.4 mg PO QPM 08/01/17 [History] Tramadol HCl [Ultram] 50 mg PO TID PRN 08/01/17 [History] Calcitriol [Rocaltrol] 0.25 mcg PO MOWEFR 08/21/17 [History] Mineral Oil/Petrolatum,White [Lubricant Eye Ointment] 1 appl BOTH EYES HS [History] Albuterol Neb [Proventil Neb] 2.5 mg IH Q4H PRN 11/06/17 [History] Cholecalciferol (D-3) [Vitamin D] 2,000 unit PO DAILY 11/06/17 [History] GuaiFENesin/Dextromethorphan [Tussin Dm Syrup] 5 ml PO Q6H PRN 11/06/17 [History ] Insulin ASPART [NovoLOG] 6 unit SQ DAILY 11/06/17 [History] Insulin Glargine,Hum.rec.anlog [Basaglar Kwikpen U-100] 10 unit SQ QAM 11/06/17 [History] Insulin Glargine,Hum.rec.anlog [Basaglar Kwikpen U-100] 15 unit SQ HS 11/06/17 [ History] Mometasone/Formoterol [Dulera 200 Mcg/5 Mcg Inhaler] 2 puff IH BID 11/06/17 [ History] Saline Nasal [place] [[place] Nasal [place]] 2 spray NS 5XD PRN 11/06/17 [History] Sennosides/Docusate Sodium [Senna Plus] 1 each PO BID PRN 11/06/17 [History] Simvastatin [Zocor] 20 mg PO HS 11/06/17 [History] predniSONE [PredniSONE] 10 mg PO DAILY 11/06/17 [History] Furosemide [Lasix] 40 mg PO DAILY tablet 11/13/17 [Rx] Heparin 5,000 unit SQ Q12HCO vial 11/13/17 [Rx] Allergies/Adverse Reactions: 3 Allergy/AdvReac Type Severity Reaction Status Date / Time acarbose AdvReac See Verified 11/06/17 20:26 Comments PLASTIC TAPE AdvReac Redness of Uncoded 08/21/17 11:26 Skin Date of admission: 11/06/17 20:45 [facility] physician[facility] Consults: 11/06/17 20:47 Consult to Cardiology [CONS] Routine Comment: Consulting Provider: Card[facility] [place] Reason for Consult: NSTEMI as called by ED Call Completed: No 11/07/17 14:16 Consult to Physical Therapy [CONS] Routine Comment: Evaluate, develop and implement POC Reason for Consult: [facility] d[facility] 11/07/17 14:17 Consult to Occupational Therapy [CONS] Routine Comment: Evaluate, develop and implement POC Reason for Consult: Possible discharge to [facility] 11/07/17 14:20 Consult to [employer] [CONS] Routine Reason for SW Consult: [facility] Patient would like to return to [facility]. - Patient Status Disposition: Transfer [facility] - Discharge Instructions Follow Up With: [facility],PCP [Primary Care Provider] - 11/16/17 10:30 am Hospital course: Patient is a 72 year old male who presents from the [facility] for acute on subacute shortness of breath. He has a past medical history significant for oxygen dependent (2 L) COPD and CAD s/p 3 stents many years ago in addition to cardiac device placement 2011. He was recently dx with lung ca and scheduled for radiation on 11/14/17. Patient was transferred from the [facility] for further evaluation and management. During patients hospital stay, he was found to have elevated cardiac biomarkers which was thought to be due to demand ischemia secondary to exacerbation of heart failure; out a consult with recommendations for by mouth Lasix. Patient COPD has been stable on baseline supplemental oxygen with dual nebs for expiratory wheezes. Patient be discharged to [facility] to continue to follow-up with oncology Center as an outpatient. - Time Spent with Patient Total time spent providing and/or coordinating discharge services: Less than 30 minutes - Constitutional Vitals: Temp Pulse Resp BP Pulse Ox 98.0 F 69 18 96/59 90 11/13/17 07:24 11/13/17 07:24 11/13/17 10:06 11/13/17 07:24 11/13/17 10:06 General appearance: Present: A&O X 3 - Respiratory Respiratory exam: Present: CTAB. Absent: accessory muscle use, rales, rhonchi, wheezes - Cardiovascular Cardiovascular exam: Present: RRR, +S1, +S2. Absent: diastolic murmur, gallop, rubs, systolic murmur
--- NOTE | 2017-11-13 12:50 | Physician Discharge Referral ---
ExtendedCare Referral Info Transfer To: [facility] Institutional Level of Care: Skilled - Diagnosis (1) Non-STEMI (non-ST elevated myocardial infarction) Priority: Secondary Status: Acute (2) Congestive heart failure Priority: Primary Status: Acute (3) COPD (chronic obstructive pulmonary disease) Priority: Primary Status: Acute (4) Anemia Priority: Primary Status: Acute - Transfer Medications Home Medications: Albuterol Sulfate [Albuterol Inhaler] 2 puff IH Q6HR PRN 09/28/15 [History] Amiodarone [Cordarone] 200 mg PO DAILY 09/28/15 [History] Ascorbic Acid [Vitamin C] 500 mg PO DAILY 09/28/15 [History] Aspirin Enteric Coated [Aspirin EC] 81 mg PO DAILY 09/28/15 [History] Cyanocobalamin (B-12) 1,000 mcg PO BID 09/28/15 [History] Mometasone Furoate [Asmanex] 2 puff IH BID 09/28/15 [History] Nitroglycerin [Nitrostat] 0.4 mg SL Q5M PRN 09/28/15 [History] Tiotropium [Spiriva] 18 mcg IH DAILY 09/28/15 [History] Acetaminophen [Tylenol] 650 mg PO TID PRN 08/01/17 [History] Cyclobenzaprine [Flexeril] 10 mg PO BID PRN 08/01/17 [History] Docusate Sodium [Dok] 100 mg PO BID 08/01/17 [History] Levothyroxine [Synthroid] 125 mcg PO 0630 08/01/17 [History] Tamsulosin [Flomax] 0.4 mg PO QPM 08/01/17 [History] Tramadol HCl [Ultram] 50 mg PO TID PRN 08/01/17 [History] Calcitriol [Rocaltrol] 0.25 mcg PO MOWEFR 08/21/17 [History] Mineral Oil/Petrolatum,White [Lubricant Eye Ointment] 1 appl BOTH EYES HS [History] Albuterol Neb [Proventil Neb] 2.5 mg IH Q4H PRN 11/06/17 [History] Cholecalciferol (D-3) [Vitamin D] 2,000 unit PO DAILY 11/06/17 [History] GuaiFENesin/Dextromethorphan [Tussin Dm Syrup] 5 ml PO Q6H PRN 11/06/17 [History ] Insulin ASPART [NovoLOG] 6 unit SQ DAILY 11/06/17 [History] Insulin Glargine,Hum.rec.anlog [Basaglar Kwikpen U-100] 10 unit SQ QAM 11/06/17 [History] Insulin Glargine,Hum.rec.anlog [Basaglar Kwikpen U-100] 15 unit SQ HS 11/06/17 [ History] Mometasone/Formoterol [Dulera 200 Mcg/5 Mcg Inhaler] 2 puff IH BID 11/06/17 [ History] Saline Nasal [place] [[place] Nasal [place]] 2 spray NS 5XD PRN 11/06/17 [History] Sennosides/Docusate Sodium [Senna Plus] 1 each PO BID PRN 11/06/17 [History] Simvastatin [Zocor] 20 mg PO HS 11/06/17 [History] predniSONE [PredniSONE] 10 mg PO DAILY 11/06/17 [History] Furosemide [Lasix] 40 mg PO DAILY tablet 11/13/17 [Rx] Heparin 5,000 unit SQ Q12HCO vial 11/13/17 [Rx] Allergies/Adverse Reactions: 3 Allergy/AdvReac Type Severity Reaction Status Date / Time acarbose AdvReac See Verified 11/06/17 20:26 Comments PLASTIC TAPE AdvReac Redness of Uncoded 08/21/17 11:26 Skin - Respiratory Orders Smoking Cessation: Smoking cessation has been advised. For more information, call the [place] Tobacco Quit Line at 1-347-NBCQ-NOW. CERTIFICATION: I certify that the transfer of the above named patient to an Extended Care Facility is necessary for the continuing treatment of the diagnosis listed. The above information is true and accurate reflection of patient's current condition. Confidential - Redisclosure prohibited without a patient's written consent.
[2017-11-13] MEDS: traMADol 50 MG TABLET PO PRN (14:07)
[2017-11-13] MEDS ORDERED: GuaiFENesin Liq 200 MG/10 ML UDC PO PRN (14:50)
[2017-11-14] MEDS: Ipratropium/Albuterol Neb 3 ML IH SCH ×4 (04:13→22:04)
[2017-11-14] MEDS: *HR* Heparin 5,000 UNIT/ML VIAL SQ SCH ×2 (06:24→17:45)
[2017-11-14] MEDS: Cholecalciferol (D-3) 1,000 UNIT TABLET PO SCH (07:59)
[2017-11-14] MEDS: Insulin LISPRO 300 UNITS/3 ML VIAL SQ SCH ×4 (07:59→22:10)
[2017-11-14] MEDS: Cyanocobalamin (B-12) 1,000 MCG TABLET PO SCH ×2 (07:59→22:09)
[2017-11-14] MEDS: *HR* Amiodarone 200 MG TABLET PO SCH (07:59)
[2017-11-14] MEDS: Furosemide 40 MG TABLET PO SCH (07:59)
[2017-11-14] MEDS: Aspirin Enteric Coated 81 MG Tablet PO SCH (07:59)
[2017-11-14] MEDS: Ascorbic Acid 500 MG TABLET PO SCH (07:59)
[2017-11-14] MEDS: Metoprolol XL (24 HR) Succ 25 MG TAB.ER.24H PO SCH (08:00)
[2017-11-14] MEDS: Insulin DETEMIR 100 UNIT/ML X5UNITS SQ SCH ×2 (09:18→22:10)
[2017-11-14] MEDS: Budesonide/Formoterol 160/4.5 MDI IH SCH ×2 (10:43→22:04)
--- NOTE | 2017-11-14 17:23 | Internal Med Progress Note ---
Date of Encounter: 11/14/17 Time of Encounter: 17:21 - Assessment and plan (1) Congestive heart failure Current Visit: Yes Status: Acute Assessment and plan: Acute on chronic diastolic heart failure. Improved. Continue oral Lasix. Patient is awaiting discharge to [facility] for placement. Qualifiers: Congestive heart failure type: diastolic Congestive heart failure chronicity: acute Qualified Code(s): I50.31 - Acute diastolic (congestive) heart failure (2) Anemia Current Visit: Yes Status: Chronic Assessment and plan: Stable blood counts. Qualifiers: Anemia type: due to chronic kidney disease Chronic kidney disease stage: stage 3 (moderate) Qualified Code(s): N18.3 - Chronic kidney disease, stage 3 (moderate); D63.1 - Anemia in chronic kidney disease; D63.1 - Anemia in chronic kidney disease (3) COPD (chronic obstructive pulmonary disease) Current Visit: Yes Status: Chronic Assessment and plan: Improved. Continue bronchodilators as needed. O2 supplementation. Qualifiers: COPD type: chronic bronchitis Chronic bronchitis type: simple Qualified Code(s): J41.0 - Simple chronic bronchitis (4) Non-STEMI (non-ST elevated myocardial infarction) Current Visit: Yes Status: Ruled-out (5) Elevated troponin Current Visit: Yes Status: Acute (6) Chronic kidney disease, stage 3 Current Visit: Yes Status: Chronic Assessment and plan: Renal function back to baseline. (7) Chronic respiratory failure with hypoxia Current Visit: Yes Status: Acute Assessment and plan: Continue O2 supplementation. Due to underlying pulmonary hypertension, CHF and lung cancer along with COPD. (8) Lung cancer Current Visit: Yes Status: Chronic Assessment and plan: Patient received radiation treatment today. Doing well postprocedure. Qualifiers: Laterality: right Lung location: unspecified part of lung Qualified Code( s): C34.91 - Malignant neoplasm of unspecified part of right bronchus or lung - Subjective Interval history: Patient is awake and alert. Doing well overall. Denies any chest pain. No fever or chills. No nausea or vomiting. Patient did go down for radiation appointment today. Tolerated well. No new complaints at this time. - Constitutional Vitals: Temp Pulse Resp BP Pulse Ox 98.2 F 72 19 110/52 91 11/14/17 15:00 11/14/17 15:00 11/14/17 15:35 11/14/17 15:00 11/14/17 15:35 General appearance: Present: cooperative, A&O X 3, no acute distress, answers questions appropriately - Neck Neck exam general surgery: Present: supple, trachea midline. Absent: lymphadenopathy - Respiratory Respiratory exam: Present: decreased breath sounds (At bases). Absent: accessory muscle use, rales, rhonchi, wheezes - Cardiovascular Cardiovascular exam: Present: RRR, +S1, +S2. Absent: diastolic murmur, gallop, rubs, systolic murmur - GI/Abdominal GI/Abdominal exam: Present: normal bowel sounds, soft, no peritoneal signs. Absent: distended, tenderness - Extremities Exam Extremities exam: Present: warm, radial pulses palpable and symmetrical. Absent : calf tenderness, cyanotic, pedal edema - Neurological Exam Neurological exam: Present: CN II-XII intact, oriented X3, no focal deficits. Absent: facial droop, speech deficit - Skin Skin exam: Present: dry, intact Internal Medicine: Result - Labs CBC & Chem 7: 11/13/17 08:34 11/13/17 08:34 - ABG Interpretation ABG results: PT/INR, D-dimer PT 13.9 Seconds (9.4-12.1) H 11/06/17 18:17 Consult Discharge Plan - Plan [facility]errals: [facility] [Primary Care Provider] - 11/16/17 10:30 am
[2017-11-14] MEDS: traMADol 50 MG TABLET PO PRN (22:12)
[2017-11-15] MEDS: Ipratropium/Albuterol Neb 3 ML IH SCH ×2 (03:49→10:40)
[2017-11-15] MEDS: *HR* Heparin 5,000 UNIT/ML VIAL SQ SCH (06:27)
[2017-11-15] MEDS: Cholecalciferol (D-3) 1,000 UNIT TABLET PO SCH (07:53)
[2017-11-15] MEDS: Aspirin Enteric Coated 81 MG Tablet PO SCH (07:53)
[2017-11-15] MEDS: Metoprolol XL (24 HR) Succ 25 MG TAB.ER.24H PO SCH (07:53)
[2017-11-15] MEDS: Furosemide 40 MG TABLET PO SCH (07:53)
[2017-11-15] MEDS: *HR* Amiodarone 200 MG TABLET PO SCH (07:53)
[2017-11-15] MEDS: Cyanocobalamin (B-12) 1,000 MCG TABLET PO SCH (07:53)
[2017-11-15 08:56] VITALS: BP 121/64
[2017-11-15] MEDS: Budesonide/Formoterol 160/4.5 MDI IH SCH (10:40)
[2017-11-15] MEDS: Insulin LISPRO 300 UNITS/3 ML VIAL SQ SCH (10:58)
[2017-11-15] MEDS: Insulin DETEMIR 100 UNIT/ML X5UNITS SQ SCH (10:59)
== END 2017-11-15 11:20 | DRG 291 ==
LOC: 2NENU 17:58 → EMEROO 17:58 → 2NENU 20:24 → SUATTDRO 20:45 → 2NENU 20:58
PROVIDERS: ADMIT Family Medicine; ATTEND Internal Medicine